=== PATIENT | female | born 1950 | race Caucasian/White ===

== ENCOUNTER 2017-07-03 08:03 | Inpatient (IN) | payer MEDICAID, OTHER ==
--- NOTE | 2017-07-02 23:22 | PCM.PREANE ---
Preanesthetic Assessment - Anesthesia/Transfusion/Family Hx Anesthesia History: Prior Anesthesia Without Reaction Family History of Anesthesia Reaction: No Transfusion History: No Prior Transfusion(s) Intubation History: Unknown - Review of Systems General: No Symptoms Pulmonary: No Symptoms (quit smoking 40 years ago.) Cardiovascular: No Symptoms (unspecified HTN), Dyspnea on Exertion (on occasion) Gastrointestinal: No Symptoms (occasional GERD), Constipation, Difficulty Swallowing Neurological: No Symptoms (history of arthralgias and back pain/ walk 1/2 mile every day.), Tingling (Right foot paresthesia on occasion.) Other: Reports: None (History of rheumatoid arthritis), Easy Bruising, Diabetes (Type II, am blood sugar =91 @0839), Sinus Problem (seasonal allergies to floral pollen), Neck Pain (Cervical C-3, C4, C5, C6 surgury done March 07, 2017) , Anxiety - Physical Assessment NPO Status Date: 07/02/17 NPO Status Time: 22:30 Pulse: 75 O2 Sat by Pulse Oximetry: 95 Respiratory Rate: 16 Blood Pressure: 148/72 Temperature: 36.6 C Height: 1.47 m Weight: 84 kg ASA Class: 2 Mental Status: Alert & Oriented x3 Airway Class: Mallampati = 3 Dentition: Reports: Dentures (upper dentures/ no teeth on the bottom) Thyro-Mental Finger Breadths: 3 Mouth Opening Finger Breadths: 2 ROM/Head Extension: Full Lungs: Clear to Auscultation, Normal Respiratory Effort Cardiovascular: Regular Rate, Regular Rhythm, No Murmurs - Lab Values: Laboratory Last Values MRSA (PCR) Negative 06/21/17 11:56 Lab values reviewed and noted with elevated BUN and CR noted. All values within acceptable ranges to proceed with scheduled procedure. - Imaging/EKG Impressions: CXR: Negative chest noted. EKG: Sinus rhythm rate=70/EKG similiar to previous EKG, with small Q-waves inferior leads noted. 2014: Negative cardiac stress test noted. - Allergies Allergies/Adverse Reactions: Allergies Allergy/AdvReac Type Severity Reaction Status Date / Time No Known Allergies Allergy Verified 08/28/14 16:24 - Anesthesia Plan Pre-Op Medication Ordered: None - Acknowledgements Anesthesia Type Planned: General Anesthesia (with a Right Interscalene Block under US guidance for post operative pain control requested by Dr. 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 Musculoskeletal History: Reports: Arthritis, Osteoarthritis, Other (See Below) Other Musculoskeletal History: R shoulder pain, carpal tunnel syndrome, lumbago , tibialis tendonitis Neurological History: Reports: Other (See Below) Other Neuro History: mononeuritis, neck surgery Psychiatric History: Reports: Anxiety, Other (See Below) Other Psychiatric History: hypersomnia Endocrine/Metabolic History: Reports: Diabetes, Type II Hematologic History: Reports: None Immunologic History: Reports: None Oncologic (Cancer) History: Reports: None Dermatologic History: Reports: Seborrheic Dermatitis - Past Surgical History Head Surgeries/Procedures: Reports: None HEENT Surgical History: Reports: Cataract Surgery GI Surgical History: Reports: None Male Surgical History: Reports: None - SUBSTANCE USE Smoking Status *Q: Former Smoker Recreational Drug Use History: No - CURRENT (IN HOUSE) MEDS Current Meds: Current Medications Lactated Ringer's (Ringers, Lactated) 1,000 mls @ 125 mls/hr IV ASDIRECTED ALONZO Lidocaine/Sodium Bicarbonate (Buffered Lidocaine 1% In Ns 8.4%) 0.25 ml IV ONETIME PRN PRN Reason: Prior to IV Start Sodium Chloride (Saline Flush) 10 ml FLUSH ASDIRECTED PRN PRN Reason: Keep Vein Open Discontinued Medications Epinephrine HCl (Adrenalin 1:1000) Confirm Administered Dose 1 mg .ROUTE .STK- MED ONE Stop: 06/30/17 13:05 Lidocaine HCl (Xylocaine-Mpf 1%) Confirm Administered Dose 2 mls @ as directed .ROUTE .STK-MED ONE Stop: 06/30/17 13:05 Ropivacaine (Naropin 0.5%) Confirm Administered Dose 30 ml .ROUTE .STK-MED ONE Stop: 06/30/17 13:05
[~2017-07-03 08:03] MED LIST: EPINEPHrine 1 MG/ML SDV ONE; Lidocaine 1% 2 ML ONE; Lidocaine 1%/Sod Bicarbonate in NS 8.4% 1 ML Syringe PRN; Ropivacaine 0.5% 5 MG/ML 30 ML SDV ONE; Sodium Chloride 0.9% 10 ML Syringe FLUSH PRN
[2017-07-03] MEDS: Lactated Ringers 1,000 ML IV SCH ×2 (08:35→14:23)
[2017-07-03] MEDS ORDERED: fentaNYL 100 MCG/2 ML SDV ONE ×2 (09:06→11:06)
[2017-07-03] MEDS ORDERED: Midazolam 1 MG/ML 2 ML SDV ONE ×2 (09:06→09:53)
[2017-07-03] MEDS ORDERED: Bupivacaine 0.25% 30 ML SDV ONE (10:07)
[2017-07-03] MEDS ORDERED: Iodine/Sodium Iodide 2% Tincture 30 ML Bottle ONE (10:07)
--- NOTE | 2017-07-03 10:58 | PCM.SN ---
- Free Text/Narrative Note: Anesthesia Note: (Interscalene block note) Dr. Velazquez present for the block Date: 07/03/2017 Time Out: 1002 Start: 1002 Stop: 1028 Surgical Procedure: Right Reverse Total Shoulder Arthroplasty Diagnosis: Right Shoulder Osteoarthritis Current Procedure: Right interscalene block under US guidance for postoperative pain control requested by Dr. Gallegos. Patient chart reviewed, risk/benefits discussed with patient, consent obtained. Patient positioned supine, monitors/alarms on, oxygen placed via nasal cannula at 2 LPM. IV sedation administered: Versed 2mg IV @ 0900, 1mg @ 1000, 1mg @ 1020 Fentanyl 50 mcg IV @ 0904, 50 mcg @ 0920 Right shoulder prepped with two chloropreps. Sterile drapes placed with aseptic technique noted. Under US guidance(sterile US sleeve noted) right subclavian artery visualized along with the right brachial plexus. Plexus followed up to C6 cricoid level, and area localized with 2mls of 1% lidocaine. 22gauge 2 inch stimiplex needle advanced under US with 0.5mV with stimulation of biceps noted. Good stimulation noted with decreased voltage and absent at 0.4mVs. 1ml of Normal Saline injected with loss of stimulation noted to confirm needle not placed intraneurally. Incremental dosing of 5mls with negative aspiration noted prior to each injection of 0.5% ropivacaine with 1:200,000 epinephrine. Total volume=30mls. Vital Signs: 0939 HR: 59 RR: 11 BP: 110/64 Spo2: 98% on 2 LPM nasal cannula 0949 HR: 61 RR: 17 BP: 120/69 Spo2: 98% on 2LPM nasal cannula 0959 HR: 62 RR: 15 BP: 122/70 Spo2: 100% on 2 LPM nasal cannula 1009 HR: 62 RR: 17 BP: 134/61 Spo2: 100% on 2 LPM nasal cannula 1019 HR: 63 RR: 13 BP: 115/63 SPO2: 100% on 2 LPM nasal cannula 1029 HR: 71 RR: 15 BP: 93/72 SPO2: 97%
[2017-07-03] MEDS ORDERED: Sennosides 8.6 MG Tab PO PRN (11:00)
[2017-07-03] MEDS ORDERED: Naloxone 0.4 MG/ML SDV IVPUSH PRN (11:00)
[2017-07-03] MEDS ORDERED: Bisacodyl 5 MG Tab PO PRN (11:00)
[2017-07-03] MEDS ORDERED: diphenhydrAMINE 50 MG/ML SDV IVPUSH PRN (11:00)
[2017-07-03] MEDS ORDERED: Morphine 2 MG/ML Syringe IVPUSH PRN (11:00)
[2017-07-03] MEDS ORDERED: Docusate Sodium 100 MG Cap PO PRN (11:00)
[2017-07-03] MEDS ORDERED: Magnesium Hydroxide 400 MG/5 ML Susp 30 ML Cup PO PRN (11:00)
[2017-07-03] MEDS ORDERED: Propofol 200 MG/20 ML SDV ONE (11:06)
[2017-07-03] MEDS: ceFAZolin 1 GM Vial ONE ×2 (12:20→13:10)
[2017-07-03] MEDS ORDERED: fentaNYL 100 MCG/2 ML SDV IVPUSH PRN (13:40)
[2017-07-03] MEDS ORDERED: Ondansetron 4 MG/2 ML SDV ONE (13:40)
[2017-07-03] MEDS ORDERED: ceFAZolin 1 GM Vial ONE (13:40)
--- NOTE | 2017-07-03 14:08 | PCM.POSTAN ---
POST ANESTHESIA ASSESSMENT - MENTAL STATUS Mental Status: Oriented, Somnolent - VITAL SIGNS Pulse Rate: 72 SaO2: 98 (2L NCO2) Resp Rate: 12 Blood Pressure: 155/69 Temperature: 36.2 C - RESPIRATORY Respiratory Status: Respiratory Rate WNL, Airway Patent, O2 Saturation Stable - CARDIOVASCULAR CV Status: Pulse Rate WNL, Blood Pressure Stable - GASTROINTESTINAL GI Status: No Symptoms - PAIN Pain Score: 0 - POST OP HYDRATION Hydration Status: Adequate & Stable - OBSERVATIONS Free Text/Narrative:: Post op CBG - 104 @ 14:05
--- NOTE | 2017-07-03 14:31 | PCM.CONS ---
H&P History of Present Illness - General Date of Service: 07/03/17 Admit Problem/Dx: Admission Diagnosis/Problem Admission Diagnosis/Problem Arthritis of shoulder region Source of Information: Patient, Old Records, Provider, RN Notes Reviewed, Significant Other History Limitations: Reports: Physical Impairment - History of Present Illness Initial Comments - Free Text/Narative: This is a 66-year-old, white female, with past medical history of HTN, HLD, DM2 , AR, Dysphagia, Mononeuritis, LBP, CTS, Hypersonia, OA/DJD, Anxiety, Cervical Stenosis and Left Shoulder who underwent right reverse total shoulder arthroplasty post operative day zero. Patient is currently doing well. Currently , her pain is controlled. She complaints of sore throat. No trouble with breathing or rash. She denies any other acute issues. Hospital Medicine was consulted for postoperative care. - Related Data Allergies/Adverse Reactions: Allergies Allergy/AdvReac Type Severity Reaction Status Date / Time No Known Allergies Allergy Verified 08/28/14 16:24 Home Medications: Home Meds Acetaminophen [Tylenol] 325 mg PO BEDTIME 07/03/17 [History] Aspirin [Low Dose Aspirin EC] 81 mg PO BID 07/03/17 [History] Ezetimibe [Zetia] 10 mg PO DAILY 07/03/17 [History] Fluticasone Propionate [Flonase] 1 spray NASBOTH BID 07/03/17 [History] Gabapentin [Neurontin] 800 mg PO TID 07/03/17 [History] Hydrocodone/Acetaminophen [[place] 5-325] 1 - 2 tab PO BEDTIME PRN 07/03/17 [ History] Lisinopril [Prinivil] 2.5 mg PO DAILY 07/03/17 [History] atorvaSTATin [Lipitor] 20 mg PO DAILY 07/03/17 [History] metFORMIN [Glucophage] 500 mg PO DAILY 07/03/17 [History] traMADol [Ultram] 50 mg PO BID 07/03/17 [History] Past Medical History HEENT History: Reports: Impaired Vision, Other (See Below) Other HEENT History: has dentures, glasses Cardiovascular History: Reports: Hypertension Respiratory History: Reports: None Gastrointestinal History: Reports: None Genitourinary History: Reports: None 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 Musculoskeletal History: Reports: Arthritis, Osteoarthritis, Other (See Below) Other Musculoskeletal History: R shoulder pain, carpal tunnel syndrome, lumbago , tibialis tendonitis Neurological History: Reports: Other (See Below) Other Neuro History: mononeuritis, neck surgery Psychiatric History: Reports: Anxiety, Other (See Below) Other Psychiatric History: hypersomnia Endocrine/Metabolic History: Reports: Diabetes, Type II Hematologic History: Reports: None Immunologic History: Reports: None Oncologic (Cancer) History: Reports: None Dermatologic History: Reports: Seborrheic Dermatitis - Past Surgical History Head Surgeries/Procedures: Reports: None HEENT Surgical History: Reports: Cataract Surgery GI Surgical History: Reports: None Male Surgical History: Reports: None Social & Family History - Tobacco Use Smoking Status *Q: Former Smoker Used Tobacco, but Quit: Yes Month Tobacco Last Used: 1974 - Recreational Drug Use Recreational Drug Use: No H&P Review of Systems - Review of Systems: Review Of Systems: See Below General: Denies: Fever, Chills, Malaise, Weakness, Fatigue HEENT: Reports: No Symptoms, Sore Throat Pulmonary: Denies: Shortness of Breath, Wheezing, Pleuritic Chest Pain Cardiovascular: Denies: Chest Pain, Palpitations, Dyspnea on Exertion, Lightheadedness Gastrointestinal: Denies: Abdominal Pain, Nausea, Vomiting Genitourinary: Reports: No Symptoms Musculoskeletal: Reports: No Symptoms Skin: Denies: Cyanosis, Jaundice, Erythema Psychiatric: Denies: Confusion, Depression, Anxiety, Hallucinations Neurological: Denies: Confusion, Difficulty Walking, Weakness, Gait Disturbance Hematologic/Lymphatic: Reports: No Symptoms Immunologic: Reports: No Symptoms Exam - Exam Exam: See Below - Vital Signs Vital Signs: Last Vital Signs Temp 36.2 C 07/03/17 14:08 Pulse 63 07/03/17 14:24 Resp 12 07/03/17 14:24 BP 150/61 H 07/03/17 14:24 Pulse Ox 100 07/03/17 14:24 Weight: 84 kg - Exam General: Alert, Oriented, Cooperative. No: Mild Distress HEENT: Conjunctiva Clear, EACs Clear, EOMI, Hearing Intact, Mucosa Moist & [place] , Nares Patent, Pupils Equal, Pupils Reactive, Other (unable to see posterior throat on exam) Neck: Supple, Trachea Midline, +2 Carotid Pulse wo Bruit, Full Range of Motion Lungs: Normal Respiratory Effort, Decreased Breath Sounds Cardiovascular: Regular Rate, Regular Rhythm GI/Abdominal Exam: Normal Bowel Sounds, Soft, Non-Tender, No Organomegaly, No Distention, No Abnormal Bruit, No Mass (Female) Exam: Deferred Rectal (Female) Exam: Deferred Back Exam: Normal Inspection, Decreased Range of Motion Extremities: Normal Inspection, Non-Tender, No Pedal Edema, Normal Capillary Refill, Other (right shoulder immobilized) Peripheral Pulses: 2+: Posterior Tibial (L), Posterior Tibial (R), Dorsalis Pedis (L), Dorsalis Pedis (R) Skin: Warm, Dry, Intact Neuro Extensive - Mental Status: Oriented x3, Normal Cognition, Memory Intact Neuro Extensive - Motor, Sensory, Reflexes: CN II-XII Intact (limited but fairly intact), Normal Gait Psychiatric: Alert, Normal Affect, Normal Mood - Patient Data Lab Results Last 24 hrs: Laboratory Results - last 24 hr 07/03/17 07/03/17 Range/Units 08:39 14:06 POC Glucose 91 104 (80-115) mg/dL Consult PN Assessment/Plan POD#: 0 Procedures: Procedures CARDIOVASCULAR STRESS TEST (09/04/14) COMP SCREEN MAMMOGRAM ADD-ON (04/06/16) DXA BONE DENSITY AXIAL (06/08/17) HT MUSCLE IMAGE SPECT MULT (09/04/14) MEDICAL NUTRITION INDIV IN (04/01/15) MRI LUMBAR SPINE W/O DYE (05/12/17) MRI NECK SPINE W/O DYE (10/11/16) Problem List Initiated/Reviewed/Updated: Yes Plan: Assessment: Acute: Post-Operative Care State - She is stable - Continue to monitor for hemodynamic instability S/p Right Reverse Total Shoulder Arthroplasty - Stable - DVT and Pain Management as per primary team Hx/o Chronic Shoulder Pain S/p Right RTSA - Pain Management as per primary team Sore Throat - Unable to see posterior pharynx - Cepacol lozenges 1 tab po Q4 PRN Chronic: HTN HLD DM2 Allergic Rhinitis/Nasal Congestion Dysphagia Mononeuritis Low Back Pain Carpal Tunnel Syndrome Hypersomnia OA/DJD Anxiety Cervical Stenosis Left Shoulder OA Plan: She clinically stable Routine AM labs Continue home meds PT/OT consult IS q2 awake Additional orders as above Thank you for the opportunity to participate in the management of this patient Requesting Provider: Dr. Gallegos Date Consult Requested: 07/03/17 Reason for Consult: Post-Operative Care Patient History Reviewed: Yes Admission H&P Reviewed: Yes Consult Result/Summary: Stable
--- NOTE | 2017-07-03 14:56 | CR ---
Right shoulder: Two fluoroscopic spot views were obtained of the right shoulder utilizing C-arm device. Study shows placement of a reverse right shoulder prosthesis. Fluoroscopy time is given as 5.2 seconds. Impression: 1. Study showing recent right shoulder prosthesis placement. Diagnostic code #2
--- NOTE | 2017-07-03 15:34 | CR ---
Right shoulder: AP view of the right shoulder was obtained. Comparison: Previous operative study performed on the same day. Reverse right shoulder prosthesis is seen. Components are aligned. Underlying bony structures are intact. Soft tissue air is noted from the surgical procedure. Impression: 1. Satisfactory appearance of recently placed right shoulder prosthesis. Diagnostic code #2
[2017-07-03] MEDS ORDERED: Metoprolol Tartrate 5 MG/5 ML SDV IVPUSH PRN (16:33)
[2017-07-03] MEDS ORDERED: hydrALAZINE 20 MG/ML SDV IVPUSH PRN (16:33)
[2017-07-03] MEDS ORDERED: Benzocaine/Cetylpyridinium/Menthol Lozenge MUCMEM PRN (16:34)
[2017-07-03] MEDS: ceFAZolin 2 GM in Premix Bag 1 BAG IV SCH (17:50)
[2017-07-03] MEDS ORDERED: Acetaminophen 325 MG Tab PO SCH (21:00)
[2017-07-03] MEDS ORDERED: Famotidine 20 MG Tab PO SCH (21:00)
[2017-07-03] MEDS ORDERED: Simvastatin 20 MG Tab PO SCH (21:00)
[2017-07-03] MEDS ORDERED: Non-Formulary Medication 1 Each (Gabapentin 800 MG) PO SCH (21:00)
[2017-07-03] MEDS: Gabapentin 100 MG Cap PO SCH (21:08)
[2017-07-03] MEDS: Aspirin 81 MG Tab.EC PO SCH (21:08)
[2017-07-03] MEDS: Gabapentin 600 MG Tab PO SCH (21:08)
[2017-07-03] MEDS: Acetaminophen/HYDROcodone 325-5 MG Tab PO PRN (21:09)
[2017-07-04] MEDS: Cyclobenzaprine 10 MG Tab PO PRN ×2 (03:39→09:30)
[2017-07-04] MEDS: Acetaminophen/HYDROcodone 325-5 MG Tab PO PRN ×2 (03:41→08:28)
[2017-07-04] MEDS: ceFAZolin 2 GM in Premix Bag 1 BAG IV SCH ×2 (03:44→10:30)
[2017-07-04] MEDS ORDERED: Sodium Chloride 0.9% 500 ML IV ONE ×2 (06:57→08:00)
--- NOTE | 2017-07-04 07:04 | PCM.CONSN ---
- General Info Date of Service: 07/04/17 Admission Dx/Problem (Free Text): Admission Diagnosis/Problem Admission Diagnosis/Problem Arthritis of shoulder region POD #1 revere total shoulder, rt, with Dr. Gallegos Pain under good control, no nausea. Tolerating meals. Functional Status: Reports: Pain Controlled, Tolerating Diet, Ambulating, Urinating, New Symptoms, Incentive Spirometry - Review of Systems General: Reports: No Symptoms HEENT: Reports: No Symptoms Pulmonary: Reports: No Symptoms Cardiovascular: Reports: No Symptoms Gastrointestinal: Reports: No Symptoms Genitourinary: Reports: No Symptoms Musculoskeletal: Reports: Shoulder Pain, Arm Pain Skin: Reports: No Symptoms Neurological: Reports: No Symptoms Psychiatric: Reports: No Symptoms - Patient Data Vitals - Most Recent: Last Vital Signs Temp 96.6 F 07/04/17 04:51 Pulse 91 07/04/17 04:51 Resp 14 07/04/17 04:51 BP 123/43 L 07/04/17 04:51 Pulse Ox 93 L 07/04/17 04:51 Weight - Most Recent: 190 lb 12.8 oz I&O - Last 24 Hours: Intake & Output 07/03/17 07/03/17 07/04/17 14:59 22:59 06:59 Intake Total 310 550 Balance 310 550 Lab Results Last 24 Hours: Laboratory Results - last 24 hr 07/03/17 07/03/17 07/03/17 Range/Units 08:39 14:06 22:48 WBC (3.98-10.04) K/mm3 RBC (3.98-5.22) M/mm3 Hgb (11.2-15.7) gm/L Hct (34.1-44.9) % MCV (79.4-94.8) fl MCH (25.6-32.2) pg MCHC (32.2-35.5) g/dl RDW Std Deviation (36.4-46.3) fL Plt Count (182-369) K/mm3 MPV (9.4-12.3) fl Neut % (Auto) (34.0-71.1) % Lymph % (Auto) (19.3-51.7) % [place] % (Auto) (4.7-12.5) % Eos % (Auto) (0.7-5.8) Baso % (Auto) (0.1-1.2) % Neut # (Auto) (1.56-6.13) K/mm3 Lymph # (Auto) (1.18-3.74) K/mm3 [place] # (Auto) (0.24-0.36) K/mm3 Eos # (Auto) (0.04-0.36) K/mm3 Baso # (Auto) (0.01-0.08) K/mm3 Manual Slide Review Sodium (136-145) mEq/L Potassium (3.5-5.1) mEq/L Chloride (98-107) mEq/L Carbon Dioxide (21-32) mEq/L Anion Gap (5-15) BUN (7-18) mg/dL Creatinine (0.55-1.02) mg/dL Est Cr Clr Drug Dosing mL/min Estimated GFR (MDRD) (>60) mL/min BUN/Creatinine Ratio (14-18) Glucose (80-115) mg/dL POC Glucose 91 104 145 H (80-115) mg/dL Calcium (8.5-10.1) mg/dL Total Bilirubin (0.2-1.0) mg/dL AST (15-37) U/L ALT (14-59) U/L Alkaline Phosphatase (46-116) U/L Total Protein (6.4-8.2) g/dl Albumin (3.4-5.0) g/dl Globulin gm/dL Albumin/Globulin Ratio (1-2) 07/04/17 07/04/17 07/04/17 Range/Units 04:44 04:44 06:32 WBC 12.82 H (3.98-10.04) K/mm3 RBC 3.77 L (3.98-5.22) M/mm3 Hgb 12.0 (11.2-15.7) gm/L Hct 36.8 (34.1-44.9) % MCV 97.6 H (79.4-94.8) fl MCH 31.8 (25.6-32.2) pg MCHC 32.6 (32.2-35.5) g/dl RDW Std Deviation 43.8 (36.4-46.3) fL Plt Count 347 (182-369) K/mm3 MPV 9.9 (9.4-12.3) fl Neut % (Auto) 71.7 H (34.0-71.1) % Lymph % (Auto) 13.5 L (19.3-51.7) % [place] % (Auto) 13.5 H (4.7-12.5) % Eos % (Auto) 0.9 (0.7-5.8) Baso % (Auto) 0.2 (0.1-1.2) % Neut # (Auto) 9.19 H (1.56-6.13) K/mm3 Lymph # (Auto) 1.73 (1.18-3.74) K/mm3 [place] # (Auto) 1.73 H (0.24-0.36) K/mm3 Eos # (Auto) 0.12 (0.04-0.36) K/mm3 Baso # (Auto) 0.03 (0.01-0.08) K/mm3 Manual Slide Review Normal smear Sodium 139 (136-145) mEq/L Potassium 3.7 (3.5-5.1) mEq/L Chloride 102 (98-107) mEq/L Carbon Dioxide 31 (21-32) mEq/L Anion Gap 9.7 (5-15) BUN 28 H (7-18) mg/dL Creatinine 1.7 H (0.55-1.02) mg/dL Est Cr Clr Drug Dosing 24.01 mL/min Estimated GFR (MDRD) 30 (>60) mL/min BUN/Creatinine Ratio 16.5 (14-18) Glucose 121 H (80-115) mg/dL POC Glucose 124 H (80-115) mg/dL Calcium 8.9 (8.5-10.1) mg/dL Total Bilirubin 0.3 (0.2-1.0) mg/dL AST 30 (15-37) U/L ALT 28 (14-59) U/L Alkaline Phosphatase 91 (46-116) U/L Total Protein 6.1 L (6.4-8.2) g/dl Albumin 3.0 L (3.4-5.0) g/dl Globulin 3.1 gm/dL Albumin/Globulin Ratio 1.0 (1-2) Med Orders - Current: Current Medications Acetaminophen (Tylenol) 325 mg PO BEDTIME ALONZO Last Admin: 07/03/17 21:09 Dose: 325 mg Hydrocodone Bitart/Acetaminophen ([place] 325-5 Mg) 2 tab PO Q4H PRN PRN Reason: Pain Last Admin: 07/04/17 03:41 Dose: 2 tab Aspirin (Halfprin) 81 mg PO BID [facility] Last Admin: 07/03/17 21:08 Dose: 81 mg Benzocaine/Menthol (Cepacol Sore Throat) 1 lozenge MUCMEM Q4HR PRN PRN Reason: Sore Throat Last Admin: 07/03/17 17:50 Dose: 1 lozenge Bisacodyl (Dulcolax) 10 mg PO DAILY PRN PRN Reason: Constipation Cyclobenzaprine HCl (Flexeril) 10 mg PO TID PRN PRN Reason: Muscle Spasm Last Admin: 07/04/17 03:39 Dose: 10 mg Diphenhydramine HCl (Benadryl) 25 mg IVPUSH Q4H PRN PRN Reason: Nausea Docusate Sodium (Colace) 100 mg PO BID PRN PRN Reason: Constipation Ezetimibe (Zetia) 10 mg PO DAILY [facility] Famotidine (Pepcid) 20 mg PO BID [facility] Last Admin: 07/03/17 21:07 Dose: 20 mg Flunisolide (Nasalide Nasal [place]) 0 ml NASBOTH BID [facility] Last Admin: 07/03/17 21:07 Dose: 2 sprays Gabapentin (Neurontin) 600 mg PO TID [facility] Last Admin: 07/03/17 21:08 Dose: 600 mg Gabapentin (Neurontin) 200 mg PO TID [facility] Last Admin: 07/03/17 21:08 Dose: 200 mg Hydralazine HCl (Apresoline) 20 mg IVPUSH Q4H PRN PRN Reason: Hypertension Cefazolin Sodium/Dextrose 2 gm (/ Premix) 50 mls @ 100 mls/hr IV Q8H [facility] Stop: 07/04/17 10:29 Last Admin: 07/04/17 03:44 Dose: 100 mls/hr Sodium Chloride (Normal Saline) 500 mls @ 999 mls/hr IV .BOLUS ONE Stop: 07/04/17 07:27 Lisinopril (Prinivil) 2.5 mg PO DAILY [facility] Magnesium Hydroxide (Milk Of Magnesia) 30 ml PO BID PRN PRN Reason: Constipation Metformin HCl (Glucophage) 500 mg PO DAILY [facility] Metoprolol Tartrate (Lopressor) 5 mg IVPUSH Q4H PRN PRN Reason: Tachycardia Morphine Sulfate (Morphine) 2 mg IVPUSH Q2H PRN PRN Reason: Breakthrough Pain Senna (Senna) 8.6 mg PO BID PRN PRN Reason: Constipation Simvastatin (Zocor) 20 mg PO BEDTIME [facility] Last Admin: 07/03/17 21:08 Dose: 20 mg Discontinued Medications Bupivacaine HCl ([place] 0.25%) Confirm Administered Dose 30 ml .ROUTE .STK- MED ONE Stop: 07/03/17 10:08 Cefazolin Sodium (Ancef) Confirm Administered Dose 2 gm .ROUTE .STK-MED ONE Stop: 07/03/17 10:08 Last Admin: 07/03/17 13:10 Dose: 2 gm Cefazolin Sodium (Ancef) Confirm Administered Dose 2 gm .ROUTE .STK-MED ONE Stop: 07/03/17 13:41 Epinephrine HCl (Adrenalin 1:1000) Confirm Administered Dose 1 mg .ROUTE .STK- MED ONE Stop: 06/30/17 13:05 Fentanyl (Sublimaze) Confirm Administered Dose 100 mcg .ROUTE .STK-MED ONE Stop: 07/03/17 09:07 Fentanyl (Sublimaze) Confirm Administered Dose 100 mcg .ROUTE .STK-MED ONE Stop: 07/03/17 11:07 Fentanyl (Sublimaze) 50 mcg IVPUSH Q5M PRN PRN Reason: Pain Stop: 07/03/17 13:56 Lactated Ringer's (Ringers, Lactated) 1,000 mls @ 125 mls/hr IV ASDIRECTED [facility] Stop: 07/03/17 23:00 Last Admin: 07/03/17 14:23 Dose: 125 mls/hr Lidocaine HCl (Xylocaine-Mpf 1%) Confirm Administered Dose 2 mls @ as directed .ROUTE .STK-MED ONE Stop: 06/30/17 13:05 Iodine (Iodine 2% Mild Tincture) Confirm Administered Dose 30 ml .ROUTE .STK- MED ONE Stop: 07/03/17 10:08 Last Admin: 07/03/17 12:09 Dose: 18 ml Lidocaine/Sodium Bicarbonate (Buffered Lidocaine 1% In Ns 8.4%) 0.25 ml .XX ONETIME PRN PRN Reason: Prior to IV Start Stop: 07/03/17 18:00 Last Admin: 07/03/17 08:34 Dose: 0.25 ml Midazolam HCl (Versed 1 Mg/Ml) Confirm Administered Dose 2 mg .ROUTE .STK-MED ONE Stop: 07/03/17 09:07 Midazolam HCl (Versed 1 Mg/Ml) Confirm Administered Dose 2 mg .ROUTE .STK-MED ONE Stop: 07/03/17 09:54 Last Admin: 07/03/17 10:20 Dose: 2 mg Naloxone HCl (Narcan) 0.1 mg IVPUSH Q5M PRN PRN Reason: Oversedation Stop: 07/03/17 11:16 Ondansetron HCl (Zofran) Confirm Administered Dose 4 mg .ROUTE .STK-MED ONE Stop: 07/03/17 13:41 Propofol (Diprivan 20 Ml) Confirm Administered Dose 200 mg .ROUTE .STK-MED ONE Stop: 07/03/17 11:07 Ropivacaine (Naropin 0.5%) Confirm Administered Dose 30 ml .ROUTE .STK-MED ONE Stop: 06/30/17 13:05 Sodium Chloride (Saline Flush) 10 ml FLUSH ASDIRECTED PRN PRN Reason: Keep Vein Open Stop: 07/03/17 18:00 Tranexamic Acid (Cyklokapron) Confirm Administered Dose 1,000 mg .ROUTE .STK- MED ONE Stop: 07/03/17 10:07 - Exam Quality Assessment: DVT Prophylaxis General: Alert, Oriented, Cooperative, No Acute Distress HEENT: Pupils Equal, Pupils Reactive, EOMI, Mucous Membr. Moist/[place] Neck: Supple Lungs: Clear to Auscultation, Normal Respiratory Effort, Decreased Breath Sounds (bases) Cardiovascular: Regular Rate, Regular Rhythm GI/Abdominal Exam: Normal Bowel Sounds, Soft, Non-Tender (Female) Exam: Deferred Extremities: Normal Capillary Refill, Other (CMS + to upper extremities distally ) Peripheral Pulses: 2+: Dorsalis Pedis (L), Dorsalis Pedis (R) Skin: Warm, Dry Wound/Incisions: Dressing Dry and Intact Neurological: No New Focal Deficit Psy/Mental Status: Alert, Normal Affect, Normal Mood Consult PN Assessment/Plan POD#: 1 Procedures: Procedures CARDIOVASCULAR STRESS TEST (09/04/14) COMP SCREEN MAMMOGRAM ADD-ON (04/06/16) DXA BONE DENSITY AXIAL (06/08/17) HT MUSCLE IMAGE SPECT MULT (09/04/14) MEDICAL NUTRITION INDIV IN (04/01/15) MRI LUMBAR SPINE W/O DYE (05/12/17) MRI NECK SPINE W/O DYE (10/11/16) Problem List Initiated/Reviewed/Updated: Yes My Orders Last 24 Hours: My Active Orders 07/04/17 06:57 Sodium Chloride 0.9% [Normal Saline] 500 ml IV .BOLUS Plan: I/P: Osteoarthritis- S/P Rt Reverse total shoulder with Dr. Gallegos, POD #1 -Pain management and DVT prophylax per primary team -PT/OT -RT/IS -Hgb 12.0 -BUN/Creatine elevated- will bolus with 500cc of IVF this morning. Chronic conditions: continue home meds HTN- stable HLD DM LBP Anxiety mononeuritis CTS cervical stenosis dysphagia AR Other: CM/SW for assist with DC planning Plans DC home with family care--OK for dc today with family care from Hospitalist standpoint if ok with therapies/safe. Patient is Full Code status.
[2017-07-04] MEDS ORDERED: Lactated Ringers 500 ML IV ONE (07:23)
[2017-07-04] MEDS: Gabapentin 600 MG Tab PO SCH (08:29)
[2017-07-04] MEDS: Gabapentin 100 MG Cap PO SCH (08:29)
[2017-07-04] MEDS: Aspirin 81 MG Tab.EC PO SCH (08:30)
[2017-07-04] MEDS ORDERED: metFORMIN 500 MG Tab PO SCH (09:00)
[2017-07-04] MEDS ORDERED: Lisinopril 2.5 MG Tab PO SCH (09:00)
[2017-07-04] MEDS ORDERED: Ezetimibe 10 MG Tab PO SCH (09:00)
[2017-07-04] MEDS ORDERED: Famotidine 20 MG Tab PO SCH (09:00)
--- NOTE | 2017-07-04 11:11 | PCM48HPAN ---
Post Anesthesia Note - EVALUATION WITHIN 48HRS OF ANESTHETIC Vital Signs in Normal Range: Yes Patient Participated in Evaluation: Yes Respiratory Function Stable: Yes Airway Patent: Yes Cardiovascular Function Stable: Yes Hydration Status Stable: Yes Pain Control Satisfactory: No (PT reports 8 or 9 out of 10 pain. see below) Nausea and Vomiting Control Satisfactory: Yes Mental Status Recovered: Yes - COMMENTS/OBSERVATIONS Free Text/Narrative:: Pt reports that shoulder block wore off in the middle of the night and she has had significant pain since. block has completely resolved. her pain meds (2 NORco po) help marginally with the pain. I asked nursing to please add in flexeril to her regime in case her pain is from muscle spasms. they will also contact Dr Gallegos to re-assess her pain needs. otherwise pt reports no n/v, no headache. taking p.o., up to restroom without difficulty
[2017-07-04 12:27] VITALS: BP 105/57
--- NOTE | 2017-07-06 22:59 | PCM.OPNOTE ---
- General Post-Op/Procedure Note Date of Surgery/Procedure: 07/03/17 Operative Procedure(s): right reverse total shoulder arthroplasty Pre Op Diagnosis: right rotator cuff tear arthropathy Post-Op Diagnosis: Same Anesthesia Technique: General ET Tube, Regional Block Primary Surgeon: Dante Gallegos Anesthesia Provider: Bobby Velazquez Medical Records Tech: Chary Owusu EBL in mLs: 305 Complications: None Condition: Good
--- NOTE | 2017-07-06 23:39 | OR ---
DATE OF OPERATION: 07/03/2017 SURGEON: Dante Gallegos MD OPERATION PERFORMED: Right reverse total shoulder arthroplasty. PREOPERATIVE DIAGNOSIS: Right rotator cuff tear arthropathy. POSTOPERATIVE DIAGNOSIS: Right rotator cuff tear arthropathy. ANESTHESIA: General endotracheal intubation with regional interscalene block. ANESTHESIA PROVIDER: Bobby Velazquez MD. SUPPLY CHAIN PLANNER: Chary Owusu LPN. ESTIMATED BLOOD LOSS: 305 mL. COMPLICATIONS: None. CONDITION: Stable. DESCRIPTION OF PROCEDURE: The patient was identified in the preop holding area. Proper site was marked and identified by the surgeon. The patient was taken back to the operating theater after adequate anesthesia. The patient was placed supine on the radiolucent table. At this time, the right shoulder was then sterilely prepped and draped in the usual sterile fashion. OR time-out was performed. The patient received 2 g of IV Ancef. The table was then placed in a reverse Trendelenburg position. Standard deltopectoral incision was made. The cephalic vein was identified and the deltopectoral interval was created. At this time, adhesions in the subacromial space as well as subdeltoid space were then taken down. Retractor was placed laterally underneath the deltoid. The conjoined tendon was then retracted medially. The anterior humeral circumflex vessels were identified through the clavipectoral fascia and were ligated. Biceps tendon was then identified and subpectoral biceps tenodesis was performed. With the use of a [place] scissors, the rotator interval was released all the way up into the joint. At this time, takedown of the subscapularis tendon was done although the patient had a significant tear of the subscapularis already. The humeral head was then dislocated. Guide pin was placed down the canal. Starter awl was then placed and the neck cut guide was then placed and was cut in 30 degrees of retroversion. This was found to be an adequate cut. Small base plate covered the humeral head cut. At this time, attention was turned to the glenoid. A Fukuda retractor was placed posteriorly. Anterior Hohmann retractor was placed. Resection of the biceps tendon as well as the labrum was then done circumferentially. Takedown of the capsule was also done inferiorly and anteriorly until there was adequate exposure. The conjoined tendon was noted to be significantly tight throughout the procedure. At this time, guide pin was then placed in a center-center position of the glenoid. The central reamer was then used and was found to be in adequate position. At this time, a small glenoid base plate was then impacted into place after the peripheral reamer was used for a small base plate. The central compression screw was then placed and then the inferior and then superior locking screws were also then placed in the Arthrex small base plate. A trial 36 mm +4 glenosphere was then placed and attention was turned to the humerus. At this time, I started with a size 5 broach in roughly 30 degrees retroversion and was found to have both rotation and vertically stable with a size 5 broach. At this time, the size 5 stem with the components was impacted into place at 135 degrees. The 36+ 4 trial was found to be too tight, so a 36 glenosphere was then trialed and was found to have adequate motion throughout range of motion with no significant tightness and no signs of dislocation with good motion. At this time, a 36 mm +0 glenosphere was then impacted into place. A 3 mm polyethylene liner was then impacted and placed on the humeral side and the shoulder was relocated. At this time, 1 L dilute Betadine solution was irrigated through the shoulder along with 3 L pulse lavage irrigation with Ancef. Local injection was then done as well. The deltopectoral interval was then tagged with #2 FiberWire. 2-0 Vicryl was used subcutaneously and Prineo was used for the skin. The patient was placed in a sterile soft dressing and a pillow sling and was sent to the PACU in stable condition. ROSALEE /[id number]
--- NOTE | 2017-07-10 10:52 | PCM.SURGPN ---
- General Info Date of Service: 07/04/17 POD#: 1 Functional Status: Reports: Pain Controlled, Tolerating Diet, Ambulating, Urinating - Review of Systems Musculoskeletal: Reports: Other (The pt is prepared for discharge to home today. ) - Patient Data Vitals - Most Recent: Last Vital Signs Temp 97.5 F 07/04/17 11:54 Pulse 78 07/04/17 11:54 Resp 14 07/04/17 11:54 BP 105/57 L 07/04/17 11:54 Pulse Ox 94 L 07/04/17 11:54 Weight - Most Recent: 190 lb 12.8 oz Med Orders - Current: Current Medications Discontinued Medications Acetaminophen (Tylenol) 325 mg PO BEDTIME [facility] Last Admin: 07/03/17 21:09 Dose: 325 mg Hydrocodone Bitart/Acetaminophen ([place] 325-5 Mg) 2 tab PO Q4H PRN PRN Reason: Pain Last Admin: 07/04/17 08:28 Dose: 2 tab Aspirin (Halfprin) 81 mg PO BID [facility] Last Admin: 07/04/17 08:30 Dose: 81 mg Benzocaine/Menthol (Cepacol Sore Throat) 1 lozenge MUCMEM Q4HR PRN PRN Reason: Sore Throat Last Admin: 07/03/17 17:50 Dose: 1 lozenge Bisacodyl (Dulcolax) 10 mg PO DAILY PRN PRN Reason: Constipation Bupivacaine HCl (Marcaine 0.25%) Confirm Administered Dose 30 ml .ROUTE .STK- MED ONE Stop: 07/03/17 10:08 Cefazolin Sodium (Ancef) Confirm Administered Dose 2 gm .ROUTE .STK-MED ONE Stop: 07/03/17 10:08 Last Admin: 07/03/17 13:10 Dose: 2 gm Cefazolin Sodium (Ancef) Confirm Administered Dose 2 gm .ROUTE .STK-MED ONE Stop: 07/03/17 13:41 Cyclobenzaprine HCl (Flexeril) 10 mg PO TID PRN PRN Reason: Muscle Spasm Last Admin: 07/04/17 09:30 Dose: 10 mg Diphenhydramine HCl (Benadryl) 25 mg IVPUSH Q4H PRN PRN Reason: Nausea Docusate Sodium (Colace) 100 mg PO BID PRN PRN Reason: Constipation Ezetimibe (Zetia) 10 mg PO DAILY [facility] Last Admin: 07/04/17 08:30 Dose: 10 mg Epinephrine HCl (Adrenalin 1:1000) Confirm Administered Dose 1 mg .ROUTE .STK- MED ONE Stop: 06/30/17 13:05 Famotidine (Pepcid) 20 mg PO BID [facility] Last Admin: 07/03/17 21:07 Dose: 20 mg Famotidine (Pepcid) 20 mg PO DAILY [facility] Last Admin: 07/04/17 08:31 Dose: 20 mg Fentanyl (Sublimaze) Confirm Administered Dose 100 mcg .ROUTE .STK-MED ONE Stop: 07/03/17 09:07 Fentanyl (Sublimaze) Confirm Administered Dose 100 mcg .ROUTE .STK-MED ONE Stop: 07/03/17 11:07 Fentanyl (Sublimaze) 50 mcg IVPUSH Q5M PRN PRN Reason: Pain Stop: 07/03/17 13:56 Flunisolide (Nasalide Nasal [place]) 0 ml NASBOTH BID [facility] Last Admin: 07/04/17 08:31 Dose: 2 sprays Gabapentin (Neurontin) 600 mg PO TID [facility] Last Admin: 07/04/17 08:29 Dose: 600 mg Gabapentin (Neurontin) 200 mg PO TID [facility] Last Admin: 07/04/17 08:29 Dose: 200 mg Hydralazine HCl (Apresoline) 20 mg IVPUSH Q4H PRN PRN Reason: Hypertension Lactated Ringer's (Ringers, Lactated) 1,000 mls @ 125 mls/hr IV ASDIRECTED [facility] Stop: 07/03/17 23:00 Last Admin: 07/03/17 14:23 Dose: 125 mls/hr Lidocaine HCl (Xylocaine-Mpf 1%) Confirm Administered Dose 2 mls @ as directed .ROUTE .STK-MED ONE Stop: 06/30/17 13:05 Cefazolin Sodium/Dextrose 2 gm (/ Premix) 50 mls @ 100 mls/hr IV Q8H [facility] Stop: 07/04/17 10:29 Last Admin: 07/04/17 10:30 Dose: 100 mls/hr Sodium Chloride (Normal Saline) 500 mls @ 999 mls/hr IV .BOLUS ONE Stop: 07/04/17 07:27 Last Admin: 07/04/17 07:30 Dose: Not Given Lactated Ringer's (Ringers, Lactated) 500 mls @ 999 mls/hr IV .BOLUS ONE Stop: 07/04/17 07:53 Last Admin: 07/04/17 07:30 Dose: Not Given Sodium Chloride (Normal Saline) 500 mls @ 999 mls/hr IV .BOLUS ONE Stop: 07/04/17 08:30 Last Admin: 07/04/17 08:34 Dose: 999 mls/hr Iodine (Iodine 2% Mild Tincture) Confirm Administered Dose 30 ml .ROUTE .STK- MED ONE Stop: 07/03/17 10:08 Last Admin: 07/03/17 12:09 Dose: 18 ml Lidocaine/Sodium Bicarbonate (Buffered Lidocaine 1% In Ns 8.4%) 0.25 ml .XX ONETIME PRN PRN Reason: Prior to IV Start Stop: 07/03/17 18:00 Last Admin: 07/03/17 08:34 Dose: 0.25 ml Lisinopril (Prinivil) 2.5 mg PO DAILY [facility] Last Admin: 07/04/17 08:30 Dose: 2.5 mg Magnesium Hydroxide (Milk Of Magnesia) 30 ml PO BID PRN PRN Reason: Constipation Metformin HCl (Glucophage) 500 mg PO DAILY [facility] Last Admin: 07/04/17 08:30 Dose: 500 mg Metoprolol Tartrate (Lopressor) 5 mg IVPUSH Q4H PRN PRN Reason: Tachycardia Midazolam HCl (Versed 1 Mg/Ml) Confirm Administered Dose 2 mg .ROUTE .STK-MED ONE Stop: 07/03/17 09:07 Midazolam HCl (Versed 1 Mg/Ml) Confirm Administered Dose 2 mg .ROUTE .STK-MED ONE Stop: 07/03/17 09:54 Last Admin: 07/03/17 10:20 Dose: 2 mg Morphine Sulfate (Morphine) 2 mg IVPUSH Q2H PRN PRN Reason: Breakthrough Pain Last Admin: 07/04/17 09:31 Dose: 2 mg Naloxone HCl (Narcan) 0.1 mg IVPUSH Q5M PRN PRN Reason: Oversedation Stop: 07/03/17 11:16 Ondansetron HCl (Zofran) Confirm Administered Dose 4 mg .ROUTE .STK-MED ONE Stop: 07/03/17 13:41 Propofol (Diprivan 20 Ml) Confirm Administered Dose 200 mg .ROUTE .STK-MED ONE Stop: 07/03/17 11:07 Ropivacaine (Naropin 0.5%) Confirm Administered Dose 30 ml .ROUTE .STK-MED ONE Stop: 06/30/17 13:05 Senna (Senna) 8.6 mg PO BID PRN PRN Reason: Constipation Last Admin: 07/04/17 08:29 Dose: 8.6 mg Simvastatin (Zocor) 20 mg PO BEDTIME [facility] Last Admin: 07/03/17 21:08 Dose: 20 mg Sodium Chloride (Saline Flush) 10 ml FLUSH ASDIRECTED PRN PRN Reason: Keep Vein Open Stop: 07/03/17 18:00 Tranexamic Acid (Cyklokapron) Confirm Administered Dose 1,000 mg .ROUTE .STK- MED ONE Stop: 07/03/17 10:07 - Exam Wound/Incisions: Dressing Dry and Intact General: Alert, Cooperative, No Acute Distress Lungs: Normal Respiratory Effort Extremities: Other (NVS intact for RUE. ) - Problem List Review Problem List Initiated/Reviewed/Updated: Yes - Assessment Assessment (Free Text/Narrative):: POD#1 - right reverse TSA - Plan Plan (Free Text/Narrative):: 1. Hgb 12.0. 2. Close monitoring of blood sugars. 3. The pt has met inpatient therapy goals and will be discharged to home today. 4. Outpatient therapy. The pt was evaluated by Dr. Gallegos today.
--- NOTE | 2017-07-10 10:54 | PCM.DCSUM1 ---
Discharge Summary - Hospital Course Brief History: Crissy is a 66 yo female who underwent right reverse TSA with Dr. Gallegos on 07-03-2017 . The procedure was completed under general anesthesia with regional block. The pt tolerated the procedure well and was admitted to the Medical-Surgical Unit. Medical management was provided by the Hospitalist service. The pt's Hospital course was uneventful. Her blood sugars were closely monitored by the Hospitalist service. The pt's Hgb on POD# 1 was 12.0. A Mepilex dressing was placed at the incision site at the time of surgery and remained clean and dry. The pt participated in P.T. and O.T. and progressed well. On POD#1, the pt was deemed appropriate to discharge to home with her . - Discharge Data Discharge Date: 07/04/17 Discharge Disposition: Home, Self-Care 01 Condition: Good - Patient Summary/Data Operative Procedure(s) Performed: right reverse total shoulder arthroplasty Consults: Consultations 07/03/17 09:46 Consult to Case Management [CONS] Routine Consult to Physician [CONS] Routine OT Evaluation and Treatment [CONS] Routine 07/03/17 09:49 PT Evaluation and Treatment [CONS] Routine - Discharge Plan Prescriptions/Med Rec: Acetaminophen/oxyCODONE [Percocet 325-5 MG] 1 - 2 tab PO Q6H #30 tablet Home Medications: Home Meds Acetaminophen [Tylenol] 325 mg PO BEDTIME 07/03/17 [History] Aspirin [Low Dose Aspirin EC] 81 mg PO BID 07/03/17 [History] Ezetimibe [Zetia] 10 mg PO DAILY 07/03/17 [History] Fluticasone Propionate [Flonase] 1 spray NASBOTH BID 07/03/17 [History] Gabapentin [Neurontin] 800 mg PO TID 07/03/17 [History] Lisinopril [Prinivil] 2.5 mg PO DAILY 07/03/17 [History] atorvaSTATin [Lipitor] 20 mg PO DAILY 07/03/17 [History] metFORMIN [Glucophage] 500 mg PO DAILY 07/03/17 [History] Acetaminophen/oxyCODONE [Percocet 325-5 MG] 1 - 2 tab PO Q6H #30 tablet [Rx] Referrals: Lesley Marie PA-C [Physician [employer]] - 07/11/17 11:30 am (July 11 and July 18 as scheduled.) - Patient Data Vitals - Most Recent: Last Vital Signs Temp 97.5 F 07/04/17 11:54 Pulse 78 07/04/17 11:54 Resp 14 07/04/17 11:54 BP 105/57 L 07/04/17 11:54 Pulse Ox 94 L 07/04/17 11:54 Weight - Most Recent: 190 lb 12.8 oz Med Orders - Current: Current Medications Discontinued Medications Acetaminophen (Tylenol) 325 mg PO BEDTIME [facility] Last Admin: 07/03/17 21:09 Dose: 325 mg Hydrocodone Bitart/Acetaminophen ([place] 325-5 Mg) 2 tab PO Q4H PRN PRN Reason: Pain Last Admin: 07/04/17 08:28 Dose: 2 tab Aspirin (Halfprin) 81 mg PO BID [facility] Last Admin: 07/04/17 08:30 Dose: 81 mg Benzocaine/Menthol (Cepacol Sore Throat) 1 lozenge MUCMEM Q4HR PRN PRN Reason: Sore Throat Last Admin: 07/03/17 17:50 Dose: 1 lozenge Bisacodyl (Dulcolax) 10 mg PO DAILY PRN PRN Reason: Constipation Bupivacaine HCl (Marcaine 0.25%) Confirm Administered Dose 30 ml .ROUTE .STK- MED ONE Stop: 07/03/17 10:08 Cefazolin Sodium (Ancef) Confirm Administered Dose 2 gm .ROUTE .STK-MED ONE Stop: 07/03/17 10:08 Last Admin: 07/03/17 13:10 Dose: 2 gm Cefazolin Sodium (Ancef) Confirm Administered Dose 2 gm .ROUTE .STK-MED ONE Stop: 07/03/17 13:41 Cyclobenzaprine HCl (Flexeril) 10 mg PO TID PRN PRN Reason: Muscle Spasm Last Admin: 07/04/17 09:30 Dose: 10 mg Diphenhydramine HCl (Benadryl) 25 mg IVPUSH Q4H PRN PRN Reason: Nausea Docusate Sodium (Colace) 100 mg PO BID PRN PRN Reason: Constipation Ezetimibe (Zetia) 10 mg PO DAILY [facility] Last Admin: 07/04/17 08:30 Dose: 10 mg Epinephrine HCl (Adrenalin 1:1000) Confirm Administered Dose 1 mg .ROUTE .STK- MED ONE Stop: 06/30/17 13:05 Famotidine (Pepcid) 20 mg PO BID [facility] Last Admin: 07/03/17 21:07 Dose: 20 mg Famotidine (Pepcid) 20 mg PO DAILY [facility] Last Admin: 07/04/17 08:31 Dose: 20 mg Fentanyl (Sublimaze) Confirm Administered Dose 100 mcg .ROUTE .STK-MED ONE Stop: 07/03/17 09:07 Fentanyl (Sublimaze) Confirm Administered Dose 100 mcg .ROUTE .STK-MED ONE Stop: 07/03/17 11:07 Fentanyl (Sublimaze) 50 mcg IVPUSH Q5M PRN PRN Reason: Pain Stop: 07/03/17 13:56 Flunisolide (Nasalide Nasal [place]) 0 ml NASBOTH BID [facility] Last Admin: 07/04/17 08:31 Dose: 2 sprays Gabapentin (Neurontin) 600 mg PO TID [facility] Last Admin: 07/04/17 08:29 Dose: 600 mg Gabapentin (Neurontin) 200 mg PO TID [facility] Last Admin: 07/04/17 08:29 Dose: 200 mg Hydralazine HCl (Apresoline) 20 mg IVPUSH Q4H PRN PRN Reason: Hypertension Lactated Ringer's (Ringers, Lactated) 1,000 mls @ 125 mls/hr IV ASDIRECTED [facility] Stop: 07/03/17 23:00 Last Admin: 07/03/17 14:23 Dose: 125 mls/hr Lidocaine HCl (Xylocaine-Mpf 1%) Confirm Administered Dose 2 mls @ as directed .ROUTE .STK-MED ONE Stop: 06/30/17 13:05 Cefazolin Sodium/Dextrose 2 gm (/ Premix) 50 mls @ 100 mls/hr IV Q8H [facility] Stop: 07/04/17 10:29 Last Admin: 07/04/17 10:30 Dose: 100 mls/hr Sodium Chloride (Normal Saline) 500 mls @ 999 mls/hr IV .BOLUS ONE Stop: 07/04/17 07:27 Last Admin: 07/04/17 07:30 Dose: Not Given Lactated Ringer's (Ringers, Lactated) 500 mls @ 999 mls/hr IV .BOLUS ONE Stop: 07/04/17 07:53 Last Admin: 07/04/17 07:30 Dose: Not Given Sodium Chloride (Normal Saline) 500 mls @ 999 mls/hr IV .BOLUS ONE Stop: 07/04/17 08:30 Last Admin: 07/04/17 08:34 Dose: 999 mls/hr Iodine (Iodine 2% Mild Tincture) Confirm Administered Dose 30 ml .ROUTE .STK- MED ONE Stop: 07/03/17 10:08 Last Admin: 07/03/17 12:09 Dose: 18 ml Lidocaine/Sodium Bicarbonate (Buffered Lidocaine 1% In Ns 8.4%) 0.25 ml .XX ONETIME PRN PRN Reason: Prior to IV Start Stop: 07/03/17 18:00 Last Admin: 07/03/17 08:34 Dose: 0.25 ml Lisinopril (Prinivil) 2.5 mg PO DAILY [facility] Last Admin: 07/04/17 08:30 Dose: 2.5 mg Magnesium Hydroxide (Milk Of Magnesia) 30 ml PO BID PRN PRN Reason: Constipation Metformin HCl (Glucophage) 500 mg PO DAILY [facility] Last Admin: 07/04/17 08:30 Dose: 500 mg Metoprolol Tartrate (Lopressor) 5 mg IVPUSH Q4H PRN PRN Reason: Tachycardia Midazolam HCl (Versed 1 Mg/Ml) Confirm Administered Dose 2 mg .ROUTE .STK-MED ONE Stop: 07/03/17 09:07 Midazolam HCl (Versed 1 Mg/Ml) Confirm Administered Dose 2 mg .ROUTE .STK-MED ONE Stop: 07/03/17 09:54 Last Admin: 07/03/17 10:20 Dose: 2 mg Morphine Sulfate (Morphine) 2 mg IVPUSH Q2H PRN PRN Reason: Breakthrough Pain Last Admin: 07/04/17 09:31 Dose: 2 mg Naloxone HCl (Narcan) 0.1 mg IVPUSH Q5M PRN PRN Reason: Oversedation Stop: 07/03/17 11:16 Ondansetron HCl (Zofran) Confirm Administered Dose 4 mg .ROUTE .STK-MED ONE Stop: 07/03/17 13:41 Propofol (Diprivan 20 Ml) Confirm Administered Dose 200 mg .ROUTE .STK-MED ONE Stop: 07/03/17 11:07 Ropivacaine (Naropin 0.5%) Confirm Administered Dose 30 ml .ROUTE .STK-MED ONE Stop: 06/30/17 13:05 Senna (Senna) 8.6 mg PO BID PRN PRN Reason: Constipation Last Admin: 07/04/17 08:29 Dose: 8.6 mg Simvastatin (Zocor) 20 mg PO BEDTIME [facility] Last Admin: 07/03/17 21:08 Dose: 20 mg Sodium Chloride (Saline Flush) 10 ml FLUSH ASDIRECTED PRN PRN Reason: Keep Vein Open Stop: 07/03/17 18:00 Tranexamic Acid (Cyklokapron) Confirm Administered Dose 1,000 mg .ROUTE .STK- MED ONE Stop: 07/03/17 10:07 *Q Meaningful Use (DIS) - VTE *Q VTE Criteria *Q: - Stroke *Q Stroke Criteria *Q: - AMI *Q AMI Criteria *Q:
== END 2017-07-04 15:22 | disposition home or self-care (01) | DRG 483 ==
LOC: JD.MS 08:03
PROVIDERS: ADMIT Orthopaedic Surgery; ATTEND Orthopaedic Surgery
PROC: 0RRJ00Z Replacement of Right Shoulder Joint with Reverse Ball and Socket Synthetic Substitute, Open Approach (ICD-10-PCS; principal; 2017-07-03)
DX: M19.011 Primary osteoarthritis, right shoulder (principal); E11.9 Type 2 diabetes mellitus without complications; I10 Essential (primary) hypertension; E78.5 Hyperlipidemia, unspecified; F41.9 Anxiety disorder, unspecified; Z87.891 Personal history of nicotine dependence; Z79.84 Long term (current) use of oral hypoglycemic drugs; Z79.82 Long term (current) use of aspirin; Z79.899 Other long term (current) drug therapy; Z91.030 Bee allergy status
CPT/HCPCS: 01638; 36415; 64415; 73020-26-RT; 73020-RT; 76000; 76000-26; 80053; 82962; 85025; 87641; 97110-GP; 97116-GP; 97161-GP; 97166-GO; 97530-GP; 97535-GO; A9270-GY; C1713; C1776; J0171; J0690; J2250; J2270; J2405; J2704; J2795; J3010; J3490; J7040; J7120

== ENCOUNTER 2020-10-22 15:53 | Emergency (ER) | payer MEDICAID, MEDICARE, OTHER, SELFPAY ==
--- NOTE | 2020-10-22 16:33 | EDM.PDOC ---
ED HPI GENERAL MEDICAL PROBLEM - General Chief Complaint: Lower Extremity Injury/Pain Stated Complaint: [facility] Time Seen by Provider: 10/22/20 16:00 Source of Information: Reports: Patient, RN Notes Reviewed History Limitations: Reports: No Limitations - History of Present Illness INITIAL COMMENTS - FREE TEXT/NARRATIVE: Patient is a 70-year-old female who presents to the ED for the evaluation of a fall. She was brought in by [email or web address]. The patient notes that she went to supper service in her apartment building, and she was not feeling great, so she went upstairs to try to get some rest. She states she initially felt lightheaded at that time. She made it upstairs and went to bed or lay down. She states someone knocked to the door, she got up, felt lightheaded again, and then kind of tripped and fell onto her right hip. She states that she is having pain in her right hip at this time. She does have a history of arthritis in her back. There is no obvious rotation or shortening noted. The patient's blood pressure at time of triage is mildly low at 90/64, recheck of that was 95/65. Pulse is 102, temperature is 97.0 F, respiratory rate is 16, O2 sats are 95% on room air. Patient has not had any fevers or chills, cough or shortness of breath. She does note that her recently this last month while he was hospitalized in [facility] due to unknown causes. Right Hip Pain Score (Numeric/FACES): 6 - Related Data Allergies Allergy/AdvReac Type Severity Reaction Status Date / Time bee venom protein (honey bee) Allergy Anaphylactic Verified 10/22/20 15:59 Shock Home Meds: Home Meds Ezetimibe [Zetia] 10 mg PO DAILY 07/03/17 [History] atorvaSTATin [Lipitor] 10 mg PO DAILY 07/03/17 [History] Triamterene/Hydrochlorothiazid [Triamterene-HCTZ 37.5-25 MG] 1 each PO DAILY 10/15/18 [History] Magnesium Oxide 400 mg PO BID #30 tablet 10/18/18 [Rx] Nystatin [Nystop] 0 gm TOP TID #120 bottle 10/18/18 [Rx] ondansetron HCL [Ondansetron] 4 mg PO Q6H PRN 11/08/18 [History] traMADol [Ultram] 50 mg PO BID PRN 11/08/18 [History] Acetaminophen [Tylenol] 325 mg PO DAILY 11/09/18 [History] Aspirin [Halfprin] 81 mg PO BID 11/09/18 [History] Saccharomyces Boulardii [Florastor] 250 mg PO BID #30 cap 11/10/18 [Rx] lisinopriL [Prinivil] 5 mg PO DAILY 10 Days #30 tablet 11/10/18 [Rx] Past Medical History HEENT History: Reports: Impaired Vision, Other (See Below) Other HEENT History: has upper dentures, glasses Cardiovascular History: Reports: High Cholesterol, Hypertension [employer] History: Reports: Musculoskeletal History: Reports: Osteoarthritis Other Musculoskeletal History: R shoulder pain, carpal tunnel syndrome, lumbago, tibialis tendonitis Neurological History: Reports: Other (See Below) Other Neuro History: mononeuritis, neck surgery Psychiatric History: Reports: Anxiety Other Psychiatric History: hypersomnia Endocrine/Metabolic History: Reports: Diabetes, Type II Dermatologic History: Reports: Seborrheic Dermatitis Other Dermatologic History: pick at scabs and sores - Infectious Disease History Infectious Disease History: Reports: Chicken Pox, Measles, Mumps - Past Surgical History HEENT Surgical History: Reports: Cataract Surgery, Tonsillectomy Female Surgical History: Reports: Section Neurological Surgical History: Reports: C-Spine Musculoskeletal Surgical History: Reports: Shoulder Surgery Social & Family History - Family History Family Medical History: No Pertinent Family History - Tobacco Use Tobacco Use Status *Q: Never Tobacco User - Caffeine Use Caffeine Use: Reports: Soda Other Caffeine Use: Diet Dr. Ndiaye 1 bottle a day - Recreational Drug Use Recreational Drug Use: No - Living Situation & Occupation Living situation: Reports: , with Spouse Occupation: Retired Review of Systems - Review of Systems Review Of Systems: Comprehensive ROS is negative, except as noted in HPI. ED EXAM, GENERAL - Physical Exam Exam: See Below Exam Limited By: No Limitations General Appearance: Alert, WD/WN, No Apparent Distress Throat/Mouth: Normal Inspection, Normal Lips, Normal Teeth, Normal Gums, Normal Oropharynx, Normal Voice, No Airway Compromise Head: Atraumatic, Normocephalic Neck: Normal Inspection Respiratory/Chest: No Respiratory Distress, Lungs Clear, Normal Breath Sounds, No Accessory Muscle Use, Chest Non-Tender Cardiovascular: Normal Peripheral Pulses, Regular Rate, Rhythm, No Edema, No Murmur Peripheral Pulses: 2+: Radial (L), Radial (R), Dorsalis Pedis (L), Dorsalis Pedis (R) Extremities: Normal Inspection, Normal Capillary Refill Neurological: Alert, Oriented, Normal Cognition, No Motor/Sensory Deficits Psychiatric: Normal Affect, Normal Mood Skin Exam: Warm, Dry, Intact, Normal Color, No Rash Course - Vital Signs Last Recorded V/S: Last Vital Signs Temp 97.0 F 10/22/20 15:55 Pulse 102 H 10/22/20 15:55 Resp 16 10/22/20 15:55 BP 90/64 10/22/20 15:55 Pulse Ox 95 10/22/20 15:55 Orthostatic Blood Pressure [ 91/47 Standing] Orthostatic Blood Pressure [ 108/94 Sitting] Orthostatic Blood Pressure [ 108/66 Supine] - Orders/Labs/Meds Orders: Active Orders 24 hr Category Date Time Status Orthostatic Vital Signs [RC] ASDIRECTED Care 10/22/20 16:12 Active Hip Min 2V or 3V w Pelvis Rt [CR] Stat Exams 10/22/20 16:12 Taken Meds: Medications Discontinued Medications Generic Name Dose Route Start Last Admin Trade Name Freq PRN Reason Stop Dose Admin Sodium Chloride 1,000 mls @ 999 mls/hr 10/22/20 17:30 10/22/20 17:57 Normal Saline IV 10/22/20 18:30 999 mls/hr ONETIME ONE Administration - Re-Assessments/Exams Free Text/Narrative Re-Assessment/Exam: 10/22/20 16:32 Patient presents to the ED for the evaluation of her right hip pain. X-rays will be obtained, orthostatic vital signs also ordered due to her low blood pressures. This may have been why she felt dizzy. Likely will get a bolus of fluids after the ortho BPs have been taken. 10/22/20 17:31 The patient's x-ray demonstrated no obvious fracture abnormalities by my eye or reviewed with Dr. Garcia. Official radiology read is pending however. Orthostatic vital signs were taken, and she did have a drop with standing, and felt lightheaded. We will go ahead and give her a bolus of fluids, and then try to get her up and moving. 10/22/20 18:26 Patient's blood pressure has improved to 118 systolically. She states she is feeling a little bit better. She does have a prescription of tramadol at home that she can use for pain. She states she is a little bit worried, she has to use a cinder block to get into her bed tonight, she is worried about falling again. At this time I cannot give her any good guidance, except for may be having a family member stay with her tonight and reassess her bed situation either tonight or tomorrow. 10/22/20 19:08 Patient was at the bedside, and has been ambulating around the ER with little difficulty. She will be discharged home with conservative recommendations. Departure - Departure Time of Disposition: 18:27 Disposition: Home, Self-Care 01 Condition: Good Clinical Impression: Orthostatic hypotension, Acute right hip pain Fall Qualifiers: Encounter type: initial encounter Qualified Code(s): W19.XXXA - Unspecified fall, initial encounter - Discharge Information *PRESCRIPTION DRUG MONITORING PROGRAM REVIEWED*: No *COPY OF PRESCRIPTION DRUG MONITORING REPORT IN PATIENT YUMIKO: No Instructions: Musculoskeletal Pain Referrals: PCP,Unknown [Ordering Only Provider] - Forms: ED Department Discharge Additional Instructions: You have been evaluated in the ED for your right hip pain. Your x-ray demonstrated no acute fracture of your hip or other bony abnormality is noted on the hip/pelvis x-rays done at today's visit. Please use ice / heat as tolerated to the affected area. You may take Tylenol 500 mg or ibuprofen 600mg q6 hrs for pain relief. Please do so until you have a tolerable level of pain with activity. Do not exceed 4000mg Tylenol or 3200mg ibuprofen in a 24 hour time period. You have a prescription for tramadol at home, you may use this as prescribed for further pain relief. I would recommend that you have a family member stay with you tonight, if you are concerned about the height of your bed. Or have them address your bed situation, to either try to lower your bed so you do not have to use a cinderblock to get into bed, this would be to help prevent further falls or injuries to yourself. Please return to ED if your symptoms should change or worsen. Sepsis Event Note (ED) - Evaluation Sepsis Screening Result: No Definite Risk - Focused Exam Vital Signs: Vital Signs Temp Pulse Resp BP Pulse Ox 10/22/20 15:55 97.0 F 102 H 16 90/64 95 - My Orders Last 24 Hours: My Active Orders 10/22/20 16:12 Orthostatic Vital Signs [RC] ASDIRECTED Hip Min 2V or 3V w Pelvis Rt [CR] Stat - Assessment/Plan Last 24 Hours: My Active Orders 10/22/20 16:12 Orthostatic Vital Signs [RC] ASDIRECTED Hip Min 2V or 3V w Pelvis Rt [CR] Stat
[2020-10-22] MEDS ORDERED: Sodium Chloride 0.9% 1,000 ML IV ONE (17:30)
[2020-10-22 19:15] VITALS: BP 126/76; PULSE 95
--- NOTE | 2020-10-26 09:38 | CR ---
PROCEDURE INFORMATION: Exam: XR Right Hip with Pelvis when Performed Exam date and time: 10/22/2020 4:39 PM Age: 70 years old Clinical indication: Injury or trauma; Fall; Blunt trauma (contusions or hematomas); Right; Hip; Additional info: RT hip pain S/P fall TECHNIQUE: Imaging protocol: XR Right hip with pelvis when performed. Views: 2 or 3 views. COMPARISON: CT Abdomen Pelvis wo Cont 11/08/2018 3:44 PM FINDINGS: Bones/joints: The bones appear intact. No acute fracture is identified. Each femoral head maintains its normal rounded shape and is appropriately seated within its acetabulum. The there is osteoarthritis of the right hip joint with joint space narrowing, subchondral sclerosis and prominent collar osteophytes. The sacroiliac joints are symmetric. The pubic rami are intact. The pubic symphysis is not widened. Soft tissues: The soft tissues are within normal limits. Vasculature: There are scattered phleboliths in the pelvis. IMPRESSION: 1. No acute osseous injury identified. 2. Advanced osteoarthritis of the right hip joint. Thank you for allowing us to participate in the care of your patient. Dictated and Authenticated by: Krystal Ennis MD 10/22/2020 9:56 PM Central Time ([place] & [place]) RICH
== END 2020-10-22 19:33 | disposition home or self-care (01) ==
LOC: JD.ED 15:53
DX: M25.551 Pain in right hip (principal); I95.1 Orthostatic hypotension; E78.00 Pure hypercholesterolemia, unspecified; I10 Essential (primary) hypertension; E11.9 Type 2 diabetes mellitus without complications; M19.90 Unspecified osteoarthritis, unspecified site; Z79.899 Other long term (current) drug therapy; Z79.82 Long term (current) use of aspirin; Z91.030 Bee allergy status; W01.0XXA Fall on same level from slipping, tripping and stumbling without subsequent striking against object, initial encounter
CPT/HCPCS: 73502; 99284; J7030

== ENCOUNTER 2020-10-24 19:51 | Emergency (ER) | payer MEDICARE ==
--- NOTE | 2020-10-24 20:10 | EDM.PDOC ---
<Charles Lowe - Last Filed: 10/25/20 13:47> ED HPI GENERAL MEDICAL PROBLEM - General Chief Complaint: Respiratory Problem Stated Complaint: [facility] Time Seen by Provider: 10/24/20 20:10 - Related Data Allergies Allergy/AdvReac Type Severity Reaction Status Date / Time bee venom protein (honey bee) Allergy Anaphylactic Verified 10/22/20 15:59 Shock Home Meds: Home Meds Ezetimibe [Zetia] 10 mg PO DAILY 07/03/17 [History] atorvaSTATin [Lipitor] 10 mg PO DAILY 07/03/17 [History] traMADol [Ultram] 50 mg PO BID PRN 11/08/18 [History] Acetaminophen [Tylenol] 325 mg PO DAILY 11/09/18 [History] Aspirin [Halfprin] 81 mg PO BID 11/09/18 [History] Cefdinir [Omnicef] 300 mg PO BID #14 cap 10/25/20 [Rx] Magnesium Chloride [Slow-Mag] 71.5 mg PO DAILY #21 tablet. 10/25/20 [Rx] Course - Re-Assessments/Exams Free Text/Narrative Re-Assessment/Exam: 10/25/20 13:[address] Mcledo. BUN is better at 45. Her creatinine is better at 1.9. Her magnesium is now elevated at 2.5. She feels good. Her sister is her to get her. I will discharge her. Departure - Departure Time of Disposition: 13:50 Disposition: Home, Self-Care 01 Clinical Impression: Hypomagnesemia, Chronic renal insufficiency, stage IV (severe), Mild congestive heart failure, Orthostatic hypotension Adverse effects of medication Qualifiers: Encounter type: initial encounter Qualified Code(s): T50.905A - Adverse effect of unspecified drugs, medicaments and biological substances, initial encounter - Discharge Information Prescriptions: Cefdinir [Omnicef] 300 mg PO BID #14 cap Magnesium Chloride [Slow-Mag] 71.5 mg PO DAILY #21 tablet. Instructions: Orthostatic Hypotension, Hypomagnesemia, Chronic Kidney Disease, Adult, [id number] Referrals: Lyndon Huynh MD [Primary Care Provider] - 1 Week Forms: ED Department Discharge Additional Instructions: Take the cefdinir two times per day for 7 days. Take the magnesium as prescribed. Do not take the metformin, lisinopril and hydrochlorothiazide. Drink plenty of fluids. Please return if you are worse. <ShaniJesús Alondra - Last Filed: 10/26/20 07:02> ED HPI GENERAL MEDICAL PROBLEM - General Source of Information: Reports: Patient, EMS History Limitations: Reports: No Limitations - History of Present Illness INITIAL COMMENTS - FREE TEXT/NARRATIVE: 70-year-old female presents to the ED per [facility] complaining of dizziness, lightheadedness and mildly short of breath on minimal exertion. She appreciates significant lightheadedness and dizziness with change in position i.e. from sitting or standing position she often becomes very lightheaded and feels like she is going to faint. She has suffered a couple of falls over the last few days. She fell 2 days ago injuring her right lateral hip which remains sore. X-rays did not reveal any fractures. When she got home after discharge from the hospital she tripped and fell in the hallway of her home falling face first onto the floor. She does have a walker and a cane but she does not use it in her home very much because it so cluttered. She states that her home needs to be cleaned up but she is unable to do so because she is impaired by the dizziness. History suggest that her recently in [place] after being transferred from our hospital of unclear cause.( believes it was from a heart attack). She states he was sent there with a skin rash. She does not believe he had COVID-19. She indicates that she has nauseated a good portion of the time and not eating or drinking very well. She is still taking all of her prescribed medications which include two medications for hypertension i.e. triamterene/hydrochlorothiazide and lisinopril daily. Initial vital signs show blood pressure of 84/50. With a resting heart rate of 107 sinus rhythm at the bedside. O2 sats 100% on room air. Denies any fever or chills. Denies any genitourinary complaints although she does have his history of urge incontinence. Onset: Other (Seems to be gradually getting worse over the last couple of weeks. She will not quantify what her weight usually is. She suspects that she is losing weight.) Onset Date: 10/10/20 (Believes that she has been having dizziness lightheadedness for at least 2 weeks.) Duration: Day(s): Location: Reports: Generalized (Neurolyse sense of illness with nausea and lightheadedness. No history of vertigo that I can discern.) Quality: Reports: Other (Generalized weakness with orthostatic hypotension clinically.) Severity: Moderate Improves with: Reports: Rest Worsens with: Reports: Other (Condition worsens with sitting up or standing up from a lying or seated position.) Context: Reports: Other (Chronic dizziness which I interpret as near syncopal feeling with x2 within the last 48 hours at home.). Denies: Activity, Exercise, Lifting, Sick Contact, Trauma Associated Symptoms: Reports: Loss of Appetite, Malaise, Nausea/Vomiting, Shortness of Breath, Weakness (Generalized). 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 Primarily urge) OUTPATIENT THERAPIST History: Reports: Musculoskeletal History: Reports: Osteoarthritis Other Musculoskeletal History: R shoulder pain, carpal tunnel syndrome, lumbago, tibialis tendonitis Neurological History: Reports: Other (See Below) Other Neuro History: mononeuritis, neck surgery Psychiatric History: Reports: Anxiety Other Psychiatric History: hypersomnia Endocrine/Metabolic History: Reports: Diabetes, Type II Dermatologic History: Reports: Seborrheic Dermatitis Other Dermatologic History: pick at scabs and sores - Infectious Disease History Infectious Disease History: Reports: Chicken Pox, Measles, Mumps - Past Surgical History Head Surgeries/Procedures: Reports: None HEENT Surgical History: Reports: Cataract Surgery, Tonsillectomy Cardiovascular Surgical History: Reports: None GI Surgical History: Reports: None Female Surgical History: Reports: Section Neurological Surgical History: Reports: C-Spine Musculoskeletal Surgical History: Reports: Shoulder Surgery Dermatological Surgical History: Reports: None Social & Family History - Family History Family Medical History: No Pertinent Family History - Tobacco Use Tobacco Use Status *Q: Never Tobacco User - Caffeine Use Caffeine Use: Reports: Soda Other Caffeine Use: Diet Dr. Ndiaye 1 bottle a day - Recreational Drug Use Recreational Drug Use: No - Living Situation & Occupation Living situation: Reports: , with Spouse Occupation: Retired ED ROS GENERAL - Review of Systems Review Of Systems: See Below Constitutional: Reports: Malaise, Weakness, Fatigue, Decreased Appetite, Weight Loss. Denies: Fever, Chills HEENT: Reports: Glasses Respiratory: Reports: Shortness of Breath. Denies: Wheezing, Pleuritic Chest Pain, Cough, Sputum Cardiovascular: Reports: Blood Pressure Problem (None), Dyspnea on Exertion, Lightheadedness (Specially with change in position from lying to standing or seated to standing.). Denies: Chest Pain, Claudication ( to antihypertensive medications for chronic hypertension.), Edema, Orthopnea, Palpitations Endocrine: Reports: Fatigue GI/Abdominal: Reports: Constipation (Problems with constipation.), Decreased Appetite, Nausea : Reports: Frequency, Urgency. Denies: Dysuria Musculoskeletal: Reports: Joint Pain (Knees hips lower back neck and shoulders at times. Recent fall 2 days ago with contusion to the right hip x-rays were negative for fracture) Skin: Reports: Dryness Neurological: Reports: Dizziness (Which I interpreted as near syncopal feeling due to orthostatic hypotension.), Headache, Difficulty Walking, Weakness. Denies: Confusion, Numbness, Syncope, Tingling (No headaches), Tremors (Feeling type gait.), Trouble Speaking, Change in Speech Psychiatric: Reports: Anxiety Hematologic/Lymphatic: Reports: No Symptoms Immunologic: Reports: No Symptoms ED EXAM, GENERAL - Physical Exam Exam: See Below Exam Limited By: No Limitations General Appearance: Alert, WD/WN, Anxious, Mild Distress, Other (Temperature is 35.9 and she does not feel warm to palpation. Heart rate 110 and appears sinus on the monitor. Respiratory of 20 with O2 sats of 99% room air BP initially 84/ 55. Currently 91/56. She is strongly orthostatic with a change in heart rate from 1 10-1 37 with standing.) Eye Exam: Bilateral Eye: Normal Inspection, PERRL (No scleral icterus or blepharal pallor.) Throat/Mouth: Normal Inspection (Tongue is moist.), Normal Lips, Normal Oropharynx, Other Head: Atraumatic, Normocephalic Neck: Normal Inspection, Supple, Non-Tender, Full Range of Motion. No: Carotid Bruit, Lymphadenopathy (L), Lymphadenopathy (R) Respiratory/Chest: No Respiratory Distress, Lungs Clear, Normal Breath Sounds, No Accessory Muscle Use Cardiovascular: No Edema, No Gallop, No JVD, No Murmur, No Rub, Tachycardia (Tachycardia at rest 107 to 110/min initially.) Peripheral Pulses: 1+: Posterior Tibial (L) (Medically has a component of peripheral vascular disease.), Posterior Tibial (R), Dorsalis Pedis (L), Dorsalis Pedis (R), 2+: Carotid (L), Carotid (R) GI/Abdominal: Normal Bowel Sounds, Soft, Non-Tender, No Organomegaly, No Abnormal Bruit, No Mass, Pelvis Stable. No: Distended, Guarding, Rigid, Rebound, Tender Back Exam: Normal Inspection, Decreased Range of Motion. No: CVA Tenderness (L), CVA Tenderness (R), Muscle Spasm Extremities: Normal Inspection, No Pedal Edema, Other (Mildly decreased internal/external rotation of both hips. Increased pain right hip with lateral rotation of the hip. Evidence of mild osteoarthritic changes in her knees.) Neurological: Alert, Oriented, CN II-XII Intact, Normal Cognition Psychiatric: Anxious (To anxious.) Skin Exam: Warm, Dry, Intact, Normal Color, No Rash #1 Interpretation EKG Date: 10/24/20 Time: 20:29 Rhythm: Other (Sinus tachycardia) Rate (Beats/Min): 106 [place]: Normal P-Wave: Present QRS: Other (The R wave transition consider right ventricular hypertrophy pattern. Decreased voltage in both the limb and precordial leads. Animal Q waves V4 to V6 consider possible old apical infarct.) ST-T: Other (Diffuse early repolarization pattern with no signs of ischemic change.) QT: Normal EKG Interpretation Comments: Abnormal ECG Course - Vital Signs Last Recorded V/S: Last Vital Signs Temp 36.1 C 10/24/20 21:09 Pulse 85 10/25/20 06:02 Resp 18 10/25/20 06:02 BP 128/60 10/25/20 06:02 Pulse Ox 98 10/25/20 06:02 Orthostatic Blood Pressure [ 84/52 Standing] Orthostatic Blood Pressure [ 84/52 Sitting] Orthostatic Blood Pressure [ 88/58 Supine] - Orders/Labs/Meds Labs: Laboratory Tests 10/24/20 10/24/20 10/24/20 Range/Units 20:33 20:38 20:38 WBC 12.04 H (3.98-10.04) K/mm3 RBC 4.41 (3.98-5.22) M/mm3 Hgb 14.0 (11.2-15.7) gm/dl Hct 41.7 (34.1-44.9) % MCV 94.6 (79.4-94.8) fl MCH 31.7 (25.6-32.2) pg MCHC 33.6 (32.2-35.5) g/dl RDW Std Deviation 43.1 (36.4-46.3) fL Plt Count 282 (182-369) K/mm3 MPV 10.5 (9.4-12.3) fl Neut % (Auto) 83.1 H (34.0-71.1) % Lymph % (Auto) 9.0 L (19.3-51.7) % [place] % (Auto) 7.5 (4.7-12.5) % Eos % (Auto) 0.2 L (0.7-5.8) Baso % (Auto) 0.2 (0.1-1.2) % Neut # (Auto) 10.01 H (1.56-6.13) K/mm3 Lymph # (Auto) 1.08 L (1.18-3.74) K/mm3 [place] # (Auto) 0.90 H (0.24-0.36) K/mm3 Eos # (Auto) 0.02 L (0.04-0.36) K/mm3 Baso # (Auto) 0.03 (0.01-0.08) K/mm3 Manual Slide Review Normal smear ESR (0-20) mm/hr PT 10.8 (9.7-12.0) SECONDS INR 1.01 APTT 22.5 (21.7-31.4) SECONDS Sodium (136-145) mEq/L Potassium (3.5-5.1) mEq/L Chloride (98-107) mEq/L Carbon Dioxide (21-32) mEq/L Anion Gap (5-15) BUN (7-18) mg/dL Creatinine (0.55-1.02) mg/dL Est Cr Clr Drug Dosing mL/min Estimated GFR (MDRD) (>60) mL/min BUN/Creatinine Ratio (14-18) Glucose (80-115) mg/dL POC Glucose 125 H (80-115) mg/dL Hemoglobin A1c (4.50-6.20) % Calcium (8.5-10.1) mg/dL Magnesium (1.8-2.4) mg/dl Total Bilirubin (0.2-1.0) mg/dL AST (15-37) U/L ALT (14-59) U/L Alkaline Phosphatase (46-116) U/L Troponin I (0.00-0.056) ng/mL C-Reactive Protein (<1.0) mg/dL NT-Pro-B Natriuret Pep (0-125) pg/mL Total Protein (6.4-8.2) g/dl Albumin (3.4-5.0) g/dl Globulin gm/dL Albumin/Globulin Ratio (1-2) Lipase (73-393) U/L TSH 3rd Generation (0.358-3.74) uIU/mL Urine Color (Yellow) Urine Appearance (Clear) Urine pH (5.0-8.0) Ur Specific [place] (1.005-1.030) Urine Protein (Negative) Urine Glucose (UA) (Negative) Urine Ketones (Negative) Urine Occult Blood (Negative) Urine Nitrite (Negative) Urine Bilirubin (Negative) Urine Urobilinogen (0.2-1.0) Ur Leukocyte Esterase (Negative) U Hyaline Cast (Auto) (0-5) /lpf Urine RBC (0-5) /hpf Urine WBC (0-5) /hpf Ur Squamous Epith Cells (0-5) /hpf Urine Bacteria (FEW) /hpf Urine Mucus (FEW) /hpf 10/24/20 10/24/20 10/24/20 Range/Units 20:38 20:38 20:38 WBC (3.98-10.04) K/mm3 RBC (3.98-5.22) M/mm3 Hgb (11.2-15.7) gm/dl Hct (34.1-44.9) % MCV (79.4-94.8) fl MCH (25.6-32.2) pg MCHC (32.2-35.5) g/dl RDW Std Deviation (36.4-46.3) fL Plt Count (182-369) K/mm3 MPV (9.4-12.3) fl Neut % (Auto) (34.0-71.1) % Lymph % (Auto) (19.3-51.7) % [place] % (Auto) (4.7-12.5) % Eos % (Auto) (0.7-5.8) Baso % (Auto) (0.1-1.2) % Neut # (Auto) (1.56-6.13) K/mm3 Lymph # (Auto) (1.18-3.74) K/mm3 [place] # (Auto) (0.24-0.36) K/mm3 Eos # (Auto) (0.04-0.36) K/mm3 Baso # (Auto) (0.01-0.08) K/mm3 Manual Slide Review ESR 5 (0-20) mm/hr PT (9.7-12.0) SECONDS INR APTT (21.7-31.4) SECONDS Sodium 142 (136-145) mEq/L Potassium 4.1 (3.5-5.1) mEq/L Chloride 104 (98-107) mEq/L Carbon Dioxide 26 (21-32) mEq/L Anion Gap 16.1 H (5-15) BUN 60 H D (7-18) mg/dL Creatinine 2.6 H D (0.55-1.02) mg/dL Est Cr Clr Drug Dosing 14.88 mL/min Estimated GFR (MDRD) 18 (>60) mL/min BUN/Creatinine Ratio 23.1 H (14-18) Glucose 128 H (80-115) mg/dL POC Glucose (80-115) mg/dL Hemoglobin A1c (4.50-6.20) % Calcium 9.9 (8.5-10.1) mg/dL Magnesium 1.3 L (1.8-2.4) mg/dl Total Bilirubin 0.8 (0.2-1.0) mg/dL AST 26 (15-37) U/L ALT 36 (14-59) U/L Alkaline Phosphatase 77 (46-116) U/L Troponin I 0.017 (0.00-0.056) ng/mL C-Reactive Protein 0.7 (<1.0) mg/dL NT-Pro-B Natriuret Pep 399 H (0-125) pg/mL Total Protein 6.7 (6.4-8.2) g/dl Albumin 3.5 (3.4-5.0) g/dl Globulin 3.2 gm/dL Albumin/Globulin Ratio 1.1 (1-2) Lipase (73-393) U/L TSH 3rd Generation 2.971 (0.358-3.74) uIU/mL Urine Color (Yellow) Urine Appearance (Clear) Urine pH (5.0-8.0) Ur Specific [place] (1.005-1.030) Urine Protein (Negative) Urine Glucose (UA) (Negative) Urine Ketones (Negative) Urine Occult Blood (Negative) Urine Nitrite (Negative) Urine Bilirubin (Negative) Urine Urobilinogen (0.2-1.0) Ur Leukocyte Esterase (Negative) U Hyaline Cast (Auto) (0-5) /lpf Urine RBC (0-5) /hpf Urine WBC (0-5) /hpf Ur Squamous Epith Cells (0-5) /hpf Urine Bacteria (FEW) /hpf Urine Mucus (FEW) /hpf 10/24/20 10/24/20 10/25/20 Range/Units 20:38 21:00 06:02 WBC (3.98-10.04) K/mm3 RBC (3.98-5.22) M/mm3 Hgb (11.2-15.7) gm/dl Hct (34.1-44.9) % MCV (79.4-94.8) fl MCH (25.6-32.2) pg MCHC (32.2-35.5) g/dl RDW Std Deviation (36.4-46.3) fL Plt Count (182-369) K/mm3 MPV (9.4-12.3) fl Neut % (Auto) (34.0-71.1) % Lymph % (Auto) (19.3-51.7) % [place] % (Auto) (4.7-12.5) % Eos % (Auto) (0.7-5.8) Baso % (Auto) (0.1-1.2) % Neut # (Auto) (1.56-6.13) K/mm3 Lymph # (Auto) (1.18-3.74) K/mm3 [place] # (Auto) (0.24-0.36) K/mm3 Eos # (Auto) (0.04-0.36) K/mm3 Baso # (Auto) (0.01-0.08) K/mm3 Manual Slide Review ESR (0-20) mm/hr PT (9.7-12.0) SECONDS INR APTT (21.7-31.4) SECONDS Sodium 145 (136-145) mEq/L Potassium 3.4 L (3.5-5.1) mEq/L Chloride 110 H (98-107) mEq/L Carbon Dioxide 23 (21-32) mEq/L Anion Gap 15.4 H (5-15) BUN 52 H (7-18) mg/dL Creatinine 2.0 H (0.55-1.02) mg/dL Est Cr Clr Drug Dosing 19.34 mL/min Estimated GFR (MDRD) 25 (>60) mL/min BUN/Creatinine Ratio 26.0 H (14-18) Glucose 101 (80-115) mg/dL POC Glucose (80-115) mg/dL Hemoglobin A1c (4.50-6.20) % Calcium 9.4 (8.5-10.1) mg/dL Magnesium (1.8-2.4) mg/dl Total Bilirubin 0.4 (0.2-1.0) mg/dL AST 22 (15-37) U/L ALT 29 (14-59) U/L Alkaline Phosphatase 66 (46-116) U/L Troponin I (0.00-0.056) ng/mL C-Reactive Protein (<1.0) mg/dL NT-Pro-B Natriuret Pep (0-125) pg/mL Total Protein 5.9 L (6.4-8.2) g/dl Albumin 3.0 L (3.4-5.0) g/dl Globulin 2.9 gm/dL Albumin/Globulin Ratio 1.0 (1-2) Lipase 132 (73-393) U/L TSH 3rd Generation (0.358-3.74) uIU/mL Urine Color Yellow (Yellow) Urine Appearance Clear (Clear) Urine pH 5.5 (5.0-8.0) Ur Specific [place] > or = 1.030 (1.005-1.030) Urine Protein 1+ H (Negative) Urine Glucose (UA) Negative (Negative) Urine Ketones Negative (Negative) Urine Occult Blood Negative (Negative) Urine Nitrite Negative (Negative) Urine Bilirubin 1+ H (Negative) Urine Urobilinogen 0.2 (0.2-1.0) Ur Leukocyte Esterase 1+ H (Negative) U Hyaline Cast (Auto) 5-10 H (0-5) /lpf Urine RBC 0-5 (0-5) /hpf Urine WBC 40-50 H (0-5) /hpf Ur Squamous Epith Cells 50-75 H (0-5) /hpf Urine Bacteria Many H (FEW) /hpf Urine Mucus Not seen (FEW) /hpf 10/25/20 10/25/20 Range/Units 06:02 12:20 WBC (3.98-10.04) K/mm3 RBC (3.98-5.22) M/mm3 Hgb (11.2-15.7) gm/dl Hct (34.1-44.9) % MCV (79.4-94.8) fl MCH (25.6-32.2) pg MCHC (32.2-35.5) g/dl RDW Std Deviation (36.4-46.3) fL Plt Count (182-369) K/mm3 MPV (9.4-12.3) fl Neut % (Auto) (34.0-71.1) % Lymph % (Auto) (19.3-51.7) % [place] % (Auto) (4.7-12.5) % Eos % (Auto) (0.7-5.8) Baso % (Auto) (0.1-1.2) % Neut # (Auto) (1.56-6.13) K/mm3 Lymph # (Auto) (1.18-3.74) K/mm3 [place] # (Auto) (0.24-0.36) K/mm3 Eos # (Auto) (0.04-0.36) K/mm3 Baso # (Auto) (0.01-0.08) K/mm3 Manual Slide Review ESR (0-20) mm/hr PT (9.7-12.0) SECONDS INR APTT (21.7-31.4) SECONDS Sodium 141 (136-145) mEq/L Potassium 3.5 (3.5-5.1) mEq/L Chloride 107 (98-107) mEq/L Carbon Dioxide 23 (21-32) mEq/L Anion Gap 14.5 (5-15) BUN 45 H (7-18) mg/dL Creatinine 1.9 H (0.55-1.02) mg/dL Est Cr Clr Drug Dosing 20.35 mL/min Estimated GFR (MDRD) 26 (>60) mL/min BUN/Creatinine Ratio 23.7 H (14-18) Glucose 135 H (80-115) mg/dL POC Glucose (80-115) mg/dL Hemoglobin A1c 5.70 (4.50-6.20) % Calcium 9.0 (8.5-10.1) mg/dL Magnesium 2.5 H (1.8-2.4) mg/dl Total Bilirubin 0.4 (0.2-1.0) mg/dL AST 19 (15-37) U/L ALT 27 (14-59) U/L Alkaline Phosphatase 63 (46-116) U/L Troponin I (0.00-0.056) ng/mL C-Reactive Protein (<1.0) mg/dL NT-Pro-B Natriuret Pep (0-125) pg/mL Total Protein 5.8 L (6.4-8.2) g/dl Albumin 2.8 L (3.4-5.0) g/dl Globulin 3.0 gm/dL Albumin/Globulin Ratio 0.9 L (1-2) Lipase (73-393) U/L TSH 3rd Generation (0.358-3.74) uIU/mL Urine Color (Yellow) Urine Appearance (Clear) Urine pH (5.0-8.0) Ur Specific [place] (1.005-1.030) Urine Protein (Negative) Urine Glucose (UA) (Negative) Urine Ketones (Negative) Urine Occult Blood (Negative) Urine Nitrite (Negative) Urine Bilirubin (Negative) Urine Urobilinogen (0.2-1.0) Ur Leukocyte Esterase (Negative) U Hyaline Cast (Auto) (0-5) /lpf Urine RBC (0-5) /hpf Urine WBC (0-5) /hpf Ur Squamous Epith Cells (0-5) /hpf Urine Bacteria (FEW) /hpf Urine Mucus (FEW) /hpf Meds: Medications Discontinued Medications Generic Name Dose Route Start Last Admin Trade Name Lili PRN Reason Stop Dose Admin Dextrose/Sodium Chloride 1,000 mls @ 250 mls/hr 10/24/20 20:30 10/24/20 20:40 Dextrose 5%-Normal Saline IV 250 mls/hr ASDIRECTED ALONZO Administration Ceftriaxone Sodium 2 gm/ 100 mls @ 200 mls/hr 10/24/20 21:47 10/24/20 21:58 Sodium Chloride IV 10/24/20 22:16 200 mls/hr ONETIME ONE Administration Magnesium Sulfate 4 gm/ Premix 50 mls @ 12.5 mls/hr 10/24/20 22:21 10/24/20 22:51 IV 10/25/20 02:20 12.5 mls/hr ONETIME ONE Administration Lactated Ringer's 1,000 mls @ 150 mls/hr 10/25/20 03:00 10/25/20 02:52 Ringers, Lactated IV 150 mls/hr ASDIRECTED ALONZO Administration Levofloxacin/Dextrose 250 mg/ 50 mls @ 50 mls/hr 10/25/20 06:45 10/25/20 06:58 Premix IV 10/25/20 07:44 50 mls/hr ONETIME ONE Administration Potassium Chloride/Dextrose/Sod Cl 1,000 mls @ 125 mls/hr 10/25/20 09:47 10/25/20 10:48 D5 Ns With 20 Meq Kcl IV 10/25/20 17:46 125 mls/hr ONETIME ONE Administration Metoclopramide HCl 5 mg 10/24/20 20:21 10/24/20 20:40 Reglan IVPUSH 10/24/20 20:22 5 mg ONETIME ONE Administration - Radiology Interpretation Free Text/Narrative:: 70-year-old female presents to the ED for the second time this week due to continued feeling of gait is dizziness and lightheadedness particularly with changing position from lying or sitting to standing position. She has fallen twice in the last 48 hours in her home contusing her right hip 2 days ago and fell face first when she entered her home after discharge from the hospital without any apparent injury. X-rays of her right hip 2 days ago we did not reveal any fracture. She reports nausea. Would made worse by eating. Her unexpectedly while hospitalized in [facility] in [place] within the last month. She does admit that she is not been eating or drinking as well as normal as she feels too sick. She reports that she has clustering throughout her house but she is too dizzy and weak to clean it. She feels the best when she is lying flat in bed. At time of presentation to ED she is feeling nauseated. She reports that she did have some turkey for supper and but had to stop eating the meal because it made her feel sick. She has no diarrhea. History of chronic constipation. Vital signs upon arrival revealed a sinus tachycardia 109/min at the bedside and a blood pressure of 84/52. She is orthostatic with blood pressure standing 84/52 with a heart rate of 139 and lying BP was 88/58 with heart rate of 103. She is on 2 antihypertensive medications and admits that she likely is losing weight over the last month since her . She denies fever chills cough or sputum production. Plan IV fluids will be D5 normal saline at 250 mils per hour. She will have a chest x-ray ECG and routine labs performed. Peers that she may well require a reduction in antihypertensive medications. - Re-Assessments/Exams Free Text/Narrative Re-Assessment/Exam: 10/24/20 20:58 Portable chest x-ray reveals poor inspirational view. However the lungs are clear. No cardiomegaly no pleural effusion . Mediastinum and c ardiac silhouette are normal. Appreciate a total right shoulder replacement in the past. 10/24/20 21:45 White count is elevated at 12.04 with a left shift of 83.1% neutrophils. Hemoglobin is 14.0 with hematocrit of 41.7. MCV is 94.6. Platelet count 282,000. Sed rate is 5. PT is 10.8 with an INR of 1.01 and a PTT of 22.5. Sodium 142 with a potassium of 4.1. Chloride 104 with a bicarb of 26. Anion gap is mildly elevated at 16.1. BUN is markedly elevated at 60 with a creatinine of 2.6 and a GFR reported at only 18. I.e. significant renal insufficiency stage IV. Glucose is 128 and was 125 at the bedside. Calcium is 9.9 magnesium is low at 1.3. Liver function is normal. Troponin I --0.017. C- reactive protein is 0.7. BNP is elevated at 399. Total protein is 6.7 with an albumin fraction of 3.5. Lipase is normal at 132. TSH is normal at 2.97. Urinalysis shows 1+ proteinuria 1+ bilirubin and 1+ leukocyte esterase on the dip. There are 5-10 hyaline casts 0-5 RBCs 40-50 white blood cells per high- power field with 50-75 squamous epithelial cells and many bacteria appreciated. Urine culture will be ordered. Vital signs show BP at 114/60. Heart rate remains elevated at 107 O2 sats are 95% on room air. Patient will be given Rocephin 2 g intravenously for urinary tract infection. Labs are available for comparison purposes. Patient was seen through the ED 2 days ago but no labs were obtained at that time. She had suffered a fall at home with contusion to her right hip. It appears that she has developed severe renal insufficiency possibly aggravated by current antihypertensive medications i.e. lisinopril and triamterene hydrochlorothiazide. 10/24/20 22:21 Patient's blood pressure has improved to 111/56. Heart rate is down to 102. O2 sats 93 to 95% room air. Will be given 4 g of magnesium sulfate IV over the next 4 hours. Continue IV fluids to improve renal function and blood pressure. Patient will remain in the emergency room overnight as there were no beds for admission to the hospital. Beds are also tight or impossible to get in [place] at this time. Plan will be to continue IV fluids overnight and recheck renal function in particular , tomorrow. morning 10/25/20 02:48 Blood pressure is slowly improving and is currently 123/61. Heart rate is still sinus tachycardia at 102/min. O2 sats 97% on room air. We will hang Ringer's lactate at this time at 150 mils per hour. She will be for repeat labs at 0600 hrs. this morning. 10/25/20 04:05 Blood pressure is currently 117/69 and heart rate has finally come down below 100 and is now at 89/min. O2 sats are maintained at 96 to 97% 10/25/20 06:39 she has been up multiple times to use the commode. Doing much better according to nursing staff that she is able to manage with her clothing and get on the commode on her own volition. She did develop one bout of dizziness or orthostasis with prolonged standing. Current blood pressure is 121/61 with a heart rate of 77. 0 600 labs have been collected but are not yet available. 10/25/20 06:52 0600 Labs are back. Sodium is 145 potassium is down to 3.4. Chloride is 110 with a bicarb of 23. Anion gap is down to 15.4. BUN is improved slightly from 60-52. Creatinine improved from 2.6-2.0. GFR is improved from 18-25. BUN/creatinine ratio is elevated at 26.0. Glucose is 101. Hemoglobin A1c is 5.70 indicating that she does not need Metformin any further. Calcium is 9.4 . Liver function remains normal. Going to give her 250 mg of Levaquin IV for urinary tract infection. Prescription will be written for Omnicef 300 mg twice daily for another 7 days starting tomorrow. Metformin will be discontinued as well her lisinopril and triamterene/hydrochlorothiazide medications. Does not there is still no bed available in the hospital. 10/25/20 07:[address] Lowe and as it is change of shift. Ideally the patient needs admission to the hospital but no beds are yet available. The plan will be to keep her in the emergency room and retest her CMP and magnesium around noon today and see if we see a continued improvement in hydration and improvement in renal function with a drop in her BUN and improvement in her creatinine. If these improve she is likely a candidate to go home with discontinuation of hydrochlorothiazide and triamterene combination as well as lisinopril and Metformin. She will need to stay on slow mag 1 tablet daily for the next 3 weeks and Omnicef 300 mg twice daily for the next 7 days to clear up urinary tract infection. 10/25/20 13:30: Labs done at 1200 hrs. today show sodium of 141 potassium is 3.5 chloride 107 with a bicarb of 23. Anion gap is down to 14.5. BUN is 45 marked improvement from 60. Creatinine is now 1.9. Estimated GFR is 26 and improvement from 18. Glucose 135. Magnesium improved to 2.5. Departure - Departure Condition: Fair - Discharge Information *PRESCRIPTION DRUG MONITORING PROGRAM REVIEWED*: Not Applicable *COPY OF PRESCRIPTION DRUG MONITORING REPORT IN PATIENT [facility]: Not Applicable
[2020-10-24] MEDS ORDERED: Metoclopramide 10 MG/2 ML SDV IVPUSH ONE (20:21)
[2020-10-24] MEDS ORDERED: Dextrose 5%-0.9% NaCl 1,000 ML IV SCH (20:30)
[2020-10-24] MEDS ORDERED: cefTRIAXone 2 GM in Sodium Chloride 0.9% 100 ML IV ONE (21:47)
[2020-10-24] MEDS ORDERED: Magnesium Sulfate/Water 4 GM in Premix Bag 1 BAG IV ONE (22:21)
[2020-10-25] MEDS ORDERED: Lactated Ringers 1,000 ML IV SCH (03:00)
[2020-10-25 06:03] VITALS: BP 128/60; PULSE 85
[2020-10-25 06:42] LABS: HEMOGLOBIN A1C 5.7 % (4.50-6.20)
[2020-10-25] MEDS ORDERED: Levofloxacin/Dextrose 5%-Water 250 MG in Premix Bag 1 BAG IV ONE (06:45)
[2020-10-25] MEDS ORDERED: Dextrose 5%-0.9% NaCl with KCl 1,000 ML IV ONE (09:47)
--- NOTE | 2020-10-26 12:11 | CR ---
PROCEDURE INFORMATION: Exam: XR Chest, 1 View Exam date and time: 10/24/2020 8:35 PM Age: 70 years old Clinical indication: Patient HX: Dyspnea and weakness. No fever or cough. ; Additional info: Prior report scanned in for your review TECHNIQUE: Imaging protocol: XR of the chest Views: 1 view. COMPARISON: DX Chest 2V 11/08/2018 4:33 PM FINDINGS: Lungs: The lungs are clear. Pleural space: No pleural effusion. No pneumothorax. Heart/Mediastinum: The heart is not enlarged. Bones/joints: Status post right shoulder replacement. No acute bony findings are identified. IMPRESSION: 1. No acute findings. 2. No change Thank you for allowing us to participate in the care of your patient. Dictated and Authenticated by: Meño Harrison MD 10/24/2020 10:21 PM Central Time ([place] & [place]) R[place]
== END 2020-10-25 14:30 | disposition home or self-care (01) ==
LOC: SUPCPDRO 19:51 → JD.ED 19:51
DX: I13.0 Hypertensive heart and chronic kidney disease with heart failure and stage 1 through stage 4 chronic kidney disease, or unspecified chronic kidney disease (principal); I50.9 Heart failure, unspecified; N18.4 Chronic kidney disease, stage 4 (severe); T50.905A Adverse effect of unspecified drugs, medicaments and biological substances, initial encounter; E83.42 Hypomagnesemia; I95.1 Orthostatic hypotension; E11.22 Type 2 diabetes mellitus with diabetic chronic kidney disease; E78.00 Pure hypercholesterolemia, unspecified; Z91.030 Bee allergy status; Z79.82 Long term (current) use of aspirin; Z79.899 Other long term (current) drug therapy
CPT/HCPCS: 36415; 71045; 80053; 81001; 82962; 83036; 83690; 83735; 83880; 84443; 84484; 85025; 85610; 85652; 85730; 86140; 87086; 93005; 96365; 96366; 96367; 96375; 99285; J0696; J1956; J2765; J3475; J3480; J7042; J7050; J7120; 93010